=== PATIENT | male | born 1985 | race African-American/Black ===

== ENCOUNTER 2019-07-13 00:55 | Inpatient (IN) | payer MEDICAID ==
[~2019-07-13] VITALS: Ht 190.5 cm; Wt 156.9 kg
[2019-07-13 02:04] LABS: BASOPHILS % 0.7 % (0.0-2.0); HEMATOCRIT. 44.2 % (42.0-52.0); HEMOGLOBIN. 15.3 g/dL (14.0-18.0); LYMPHOCYTES % 22.5 % (20.0-50.0); MEAN CORPUSCULAR HEMOGLOBIN 34.9 pg (28.0-32.0); MEAN CORPUSCULAR VOLUME 100.9 fL (80.0-94.0); MEAN PLATELET VOLUME 11.2 fl (7.4-10.4); MONOCYTES % 12.6 % (2.0-8.0); NEUTROPHILS % 62.2 % (40.0-76.0); PLATELET 122 x1000/uL (130-400); RED BLOOD CELL COUNT 4.38 mill/uL (4.7-6.1); RED CELL DISTRIBUTION WIDTH 14.5 % (11.6-14.6)
[2019-07-13 02:08] LABS: CHLORIDE 108 mEq/L (98-107)
[2019-07-13 02:19] LABS: CREATINE KINASE MB FRACTION 2.3 ng/mL (0.5-3.6)
[2019-07-13] MEDS ORDERED: FUROSEMIDE 20MG/2ML VIAL IVP ONE (02:45)
[2019-07-13 02:51] LABS: CREATINE KINASE 1097 IU/L (39-308)
[2019-07-13] MEDS ORDERED: ASPIRIN 325MG EC TABLET PO ONE (03:30)
[2019-07-13 07:29] LABS: *AMPHETAMINES SCREEN URINE NEGATIVE (NEGATIVE); *BARBITURATES SCREEN URINE NEGATIVE (NEGATIVE); *BENZODIAZEPINES SCREEN URINE NEGATIVE (NEGATIVE); *COCAINE SCREEN URINE NEGATIVE (NEGATIVE); METHADONE URINE SCREEN NEGATIVE (NEGATIVE)
[2019-07-13 07:30] LABS: CANNABINOID URINE SCREEN NEGATIVE (NEGATIVE); OPIATES URINE SCREEN NEGATIVE (NEGATIVE); PHENCYCLIDINE URINE SCREEN NEGATIVE (NEGATIVE)
[2019-07-13 08:55] VITALS: BP 130/87
[2019-07-13 09:00] VITALS: BP 130/87
[2019-07-13] MEDS ORDERED: FUROSEMIDE 20MG/2ML VIAL IVP NR (10:00)
[2019-07-13] MEDS ORDERED: ACETAMINOPHEN 325MG TABLET PO PRN (10:00)
[2019-07-13] MEDS ORDERED: ONDANSETRON HCL 4MG/2ML INJ IV PRN (10:00)
[2019-07-13 12:00] VITALS: BP 136/87
[2019-07-13] MEDS ORDERED: IPRATROPIUM/ALBUTEROL 0.5-3(2.5)MG/3ML NEB HHN PRN (12:15)
[2019-07-13] MEDS: LOSARTAN POTASSIUM 50 MG TABLET PO SCH (15:27)
[2019-07-13 16:00] VITALS: BP 132/74
[2019-07-13 18:56] LABS: HEPATITIS B SURFACE ANTIGEN NEGATIVE
[2019-07-13 19:06] LABS: CLARITY URINE CLEAR (CLEAR); COLOR URINE YELLOW (YELLOW); KETONES URINE NEGATIVE (NEGATIVE); LEUKOCYTE ESTERASE URINE NEGATIVE (NEGATIVE); NITRITE URINE NEGATIVE (NEGATIVE); OCCULT BLOOD URINE 1+ (NEGATIVE); PROTEIN URINE NEGATIVE (NEGATIVE); SPECIFIC GRAVITY URINE 1.009 (1.005-1.030)
[2019-07-13 19:26] LABS: HEPATITIS A AB IGM NEGATIVE (NEGATIVE)
[2019-07-13 20:00] VITALS: BP 122/73
[2019-07-13] MEDS: CARVEDILOL 6.25 MG TABLET PO SCH (21:29)
[2019-07-14] VITALS: BP 131/88
[2019-07-14 04:00] VITALS: BP 119/72
[2019-07-14 06:06] LABS: CHLORIDE 106 mEq/L (98-107)
[2019-07-14 06:29] LABS: BASOPHILS % 0.8 % (0.0-2.0); EOSINOPHILS % 2.3 % (0.0-5.0); HEMATOCRIT. 43.6 % (42.0-52.0); HEMOGLOBIN. 14.7 g/dL (14.0-18.0); LYMPHOCYTES % 20.7 % (20.0-50.0); MEAN CORPUSCULAR HEMOGLOBIN 34.3 pg (28.0-32.0); MEAN CORPUSCULAR VOLUME 101.7 fL (80.0-94.0); MEAN PLATELET VOLUME 11.4 fl (7.4-10.4); MONOCYTES % 10.8 % (2.0-8.0); NEUTROPHILS % 65.4 % (40.0-76.0); PLATELET 115 x1000/uL (130-400); RED BLOOD CELL COUNT 4.29 mill/uL (4.7-6.1); RED CELL DISTRIBUTION WIDTH 14.6 % (11.6-14.6)
[2019-07-14 08:45] VITALS: BP 127/86
[2019-07-14] MEDS: ASPIRIN 81MG TABLET PO SCH (09:19)
[2019-07-14] MEDS: CARVEDILOL 6.25 MG TABLET PO SCH (09:19)
[2019-07-14] MEDS: FUROSEMIDE 40MG/4ML VIAL IVP SCH (09:20)
[2019-07-14] MEDS: LOSARTAN POTASSIUM 50 MG TABLET PO SCH (09:20)
[2019-07-14 11:32] VITALS: BP 123/72
[2019-07-14] MEDS: SPIRONOLACTONE 25MG TABLET PO SCH (14:08)
[2019-07-14 20:00] VITALS: BP 137/77
[2019-07-14] MEDS ORDERED: CARVEDILOL 12.5MG TABLET PO SCH (21:00)
[2019-07-15] VITALS: BP 120/67
[2019-07-15 04:00] VITALS: BP 107/65
[2019-07-15 08:00] VITALS: BP 118/68
[2019-07-15] MEDS: SPIRONOLACTONE 25MG TABLET PO SCH (08:32)
[2019-07-15] MEDS: ASPIRIN 81MG TABLET PO SCH (08:32)
[2019-07-15] MEDS: FUROSEMIDE 40MG/4ML VIAL IVP SCH (08:32)
[2019-07-15 09:25] VITALS: BP 118/68
== END 2019-07-15 10:08 | disposition home or self-care (01) | DRG 194 ==
LOC: ER 00:55 → 6WST 03:59 → EDBEDREQ 04:02 → EDBEDREQTM 04:02 → ENRESERV 06:54
PROVIDERS: ADMIT Internal Medicine; ATTEND Internal Medicine
DX: I11.0 Hypertensive heart disease with heart failure (principal); E87.8 Other disorders of electrolyte and fluid balance, not elsewhere classified; E66.01 Morbid (severe) obesity due to excess calories; I42.9 Cardiomyopathy, unspecified; M62.82 Rhabdomyolysis; Z68.41 Body mass index [BMI] 40.0-44.9, adult; I50.23 Acute on chronic systolic (congestive) heart failure; E78.5 Hyperlipidemia, unspecified; F17.210 Nicotine dependence, cigarettes, uncomplicated; R74.0 Nonspecific elevation of levels of transaminase and lactic acid dehydrogenase [LDH]; K76.0 Fatty (change of) liver, not elsewhere classified; Z91.19 Patient's noncompliance with other medical treatment and regimen
CPT/HCPCS: 36415; 71045; 76700; 80061; 80305; 81003; 82550; 82553; 83735; 83880; 84145; 84443; 84484; 85379; 86705; 86709; 86803; 87340; 93005; 93306; 93970; 96374; 99285; J1940

== ENCOUNTER 2019-09-15 19:28 | Inpatient (IN) | payer MEDICAID ==
[~2019-09-15] VITALS: Ht 190.5 cm; Wt 148.3 kg
[2019-09-15 21:19] LABS: BASOPHILS % 0.8 % (0.0-2.0); EOSINOPHILS % 2.5 % (0.0-5.0); HEMATOCRIT. 45.8 % (42.0-52.0); HEMOGLOBIN. 15.7 g/dL (14.0-18.0); LYMPHOCYTES % 24.4 % (20.0-50.0); MEAN CORPUSCULAR HEMOGLOBIN 33.5 pg (28.0-32.0); MEAN CORPUSCULAR VOLUME 97.7 fL (80.0-94.0); MEAN PLATELET VOLUME 11.6 fl (7.4-10.4); MONOCYTES % 7.7 % (2.0-8.0); NEUTROPHILS % 64.6 % (40.0-76.0); PLATELET 144 x1000/uL (130-400); RED BLOOD CELL COUNT 4.68 mill/uL (4.7-6.1); RED CELL DISTRIBUTION WIDTH 13.4 % (11.6-14.6)
[2019-09-15 21:25] LABS: CHLORIDE 107 mEq/L (98-107)
[2019-09-15 21:31] LABS: D-DIMER 0.38 mg/L FEU (<0.50); INR 1.1; PARTIAL THROMBOPLASTIN TIME 27.3 sec (23.4-31.0); PROTHROMBIN TIME 11.4 sec (9.6-11.0)
[2019-09-15] MEDS ORDERED: ASPIRIN 81MG TABLET PO ONE (23:00)
[2019-09-15] MEDS ORDERED: NITROGLYCERIN OINT 1GM/INCH UDPKT TD ONE (23:00)
[2019-09-15] MEDS ORDERED: FUROSEMIDE 40MG/4ML VIAL IV ONE (23:00)
[2019-09-16] MEDS ORDERED: ONDANSETRON HCL 4MG/2ML INJ IV STA (00:16)
[2019-09-16] MEDS ORDERED: MORPHINE SULFATE 4 MG/ML CPJ (NOT FOR IM USE) IV STA (00:16)
[2019-09-16] MEDS ORDERED: FURO40TA5 MT (06:09)
[2019-09-16] MEDS ORDERED: LOSA50TA41 MT ×2 (06:09→12:22)
[2019-09-16] MEDS ORDERED: CARV12.545 MT (06:09)
[2019-09-16 12:00] VITALS: BP 108/70
[2019-09-16] MEDS ORDERED: ACETAMINOPHEN 325MG TABLET PO PRN (12:15)
[2019-09-16] MEDS ORDERED: ONDANSETRON HCL 4MG/2ML INJ IV PRN (12:15)
[2019-09-16] MEDS ORDERED: CLONIDINE 0.1MG TABLET PO PRN (12:15)
[2019-09-16] MEDS ORDERED: FUROSEMIDE 40MG/4ML VIAL IVP SCH (12:15)
[2019-09-16] MEDS ORDERED: COR12 MT (12:22)
[2019-09-16] MEDS ORDERED: FURO-151 MT (12:22)
[2019-09-16 12:25] VITALS: BP 136/75
[2019-09-16] MEDS ORDERED: ENOXAPARIN 40MG/0.4ML SYR SUBCUT SCH (13:00)
[2019-09-16] MEDS: LOSARTAN POTASSIUM 50 MG TABLET PO SCH (13:11)
[2019-09-16] MEDS: CARVEDILOL 12.5MG TABLET PO SCH ×2 (13:12→21:00)
[2019-09-16] MEDS: ENOXAPARIN 40MG/0.4ML SYR SUBCUT SCH ×2 (13:13→21:18)
[2019-09-16 16:00] VITALS: BP 99/60
[2019-09-16 16:34] LABS: *AMPHETAMINES SCREEN URINE NEGATIVE (NEGATIVE); CANNABINOID URINE SCREEN NEGATIVE (NEGATIVE); OPIATES URINE SCREEN PRESUMTIVE POSITIVE (NEGATIVE); PHENCYCLIDINE URINE SCREEN NEGATIVE (NEGATIVE)
[2019-09-16 16:35] LABS: *BARBITURATES SCREEN URINE NEGATIVE (NEGATIVE); *BENZODIAZEPINES SCREEN URINE NEGATIVE (NEGATIVE); *COCAINE SCREEN URINE NEGATIVE (NEGATIVE); METHADONE URINE SCREEN NEGATIVE (NEGATIVE)
[2019-09-16] MEDS: FUROSEMIDE 40MG/4ML VIAL IVP SCH (17:57)
[2019-09-16 18:28] LABS: CREATINE KINASE 139 IU/L (39-308)
[2019-09-16 18:30] LABS: CREATINE KINASE MB FRACTION 1.2 ng/mL (0.5-3.6)
[2019-09-16 20:00] VITALS: BP 100/52
[2019-09-16] MEDS: IPRATROPIUM/ALBUTEROL 0.5-3(2.5)MG/3ML NEB HHN SCH (20:05)
[2019-09-16] MEDS: ATORVASTATIN CALCIUM 20MG TABLET PO SCH (21:18)
[2019-09-16 23:45] LABS: CREATINE KINASE 124 IU/L (39-308)
[2019-09-16 23:46] LABS: CREATINE KINASE MB FRACTION < 1.0 ng/mL (0.5-3.6)
[2019-09-17] VITALS: BP 114/53
[2019-09-17] MEDS: HYDROCODONE/ACETAMINOPHEN 5/325MG TABLET PO PRN (00:55)
[2019-09-17] MEDS: IPRATROPIUM/ALBUTEROL 0.5-3(2.5)MG/3ML NEB HHN SCH ×4 (01:19→21:24)
[2019-09-17 04:00] VITALS: BP 95/64
[2019-09-17] MEDS: FUROSEMIDE 40MG/4ML VIAL IVP SCH ×2 (06:38→18:12)
[2019-09-17 06:46] LABS: BASOPHILS % 0.8 % (0.0-2.0); EOSINOPHILS % 2.9 % (0.0-5.0); LYMPHOCYTES % 28.5 % (20.0-50.0); MEAN CORPUSCULAR HEMOGLOBIN 33.5 pg (28.0-32.0); MEAN CORPUSCULAR VOLUME 98.5 fL (80.0-94.0); MEAN PLATELET VOLUME 11.5 fl (7.4-10.4); MONOCYTES % 10.8 % (2.0-8.0); PLATELET 130 x1000/uL (130-400); RED BLOOD CELL COUNT 4.47 mill/uL (4.7-6.1); RED CELL DISTRIBUTION WIDTH 13.3 % (11.6-14.6)
[2019-09-17 08:00] VITALS: BP 105/64
[2019-09-17] MEDS: CARVEDILOL 12.5MG TABLET PO SCH ×2 (08:40→20:19)
[2019-09-17] MEDS: ENOXAPARIN 40MG/0.4ML SYR SUBCUT SCH ×3 (08:41→20:19)
[2019-09-17] MEDS: LOSARTAN POTASSIUM 50 MG TABLET PO SCH (08:41)
[2019-09-17 09:18] LABS: CHLORIDE 105 mEq/L (98-107)
[2019-09-17 12:00] VITALS: BP 102/55
[2019-09-17] MEDS: POTASSIUM CHLORIDE 20MEQ TABLET SR PO SCH (14:39)
[2019-09-17 16:00] VITALS: BP 108/57
[2019-09-17 20:00] VITALS: BP 93/52
[2019-09-17] MEDS: ATORVASTATIN CALCIUM 20MG TABLET PO SCH (20:18)
[2019-09-18] VITALS: BP 122/73
[2019-09-18] MEDS: IPRATROPIUM/ALBUTEROL 0.5-3(2.5)MG/3ML NEB HHN SCH ×3 (02:10→14:05)
[2019-09-18] MEDS: HYDROCODONE/ACETAMINOPHEN 5/325MG TABLET PO PRN (03:44)
[2019-09-18 04:00] VITALS: BP 122/77
[2019-09-18] MEDS: FUROSEMIDE 40MG/4ML VIAL IVP SCH (06:33)
[2019-09-18 07:30] LABS: BASOPHILS % 0.8 % (0.0-2.0); EOSINOPHILS % 2.5 % (0.0-5.0); HEMATOCRIT. 42.4 % (42.0-52.0); HEMOGLOBIN. 14.5 g/dL (14.0-18.0); LYMPHOCYTES % 27.1 % (20.0-50.0); MEAN CORPUSCULAR HEMOGLOBIN 33.7 pg (28.0-32.0); MEAN CORPUSCULAR VOLUME 98.5 fL (80.0-94.0); MEAN PLATELET VOLUME 11.7 fl (7.4-10.4); NEUTROPHILS % 58.6 % (40.0-76.0); PLATELET 131 x1000/uL (130-400); RED CELL DISTRIBUTION WIDTH 13.4 % (11.6-14.6)
[2019-09-18 07:32] LABS: CHLORIDE 103 mEq/L (98-107)
[2019-09-18 08:00] VITALS: BP 95/54
[2019-09-18] MEDS: POTASSIUM CHLORIDE 20MEQ TABLET SR PO SCH (08:48)
[2019-09-18] MEDS: CARVEDILOL 12.5MG TABLET PO SCH (08:49)
[2019-09-18] MEDS: ENOXAPARIN 40MG/0.4ML SYR SUBCUT SCH (08:49)
[2019-09-18] MEDS: LOSARTAN POTASSIUM 50 MG TABLET PO SCH (08:49)
[2019-09-18] MEDS ORDERED: ASPIRIN 81MG TABLET PO SCH (09:00)
[2019-09-18] MEDS ORDERED: POTASSIUM CHLORIDE 20MEQ TABLET SR PO NR (11:15)
[2019-09-18 12:00] VITALS: BP 96/64
[2019-09-18 12:45] VITALS: BP 96/64
[2019-09-18] MEDS ORDERED: ATORVASTATIN CALCIUM 40MG TABLET PO SCH (21:00)
== END 2019-09-18 15:10 | disposition home or self-care (01) | DRG 194 ==
LOC: ER 19:28 → EDBEDREQTM 09-16 00:03 → EDBEDREQ 09-16 00:03 → ENRESERV 09-16 07:32 → 8WST 09-16 08:27
PROVIDERS: ADMIT Internal Medicine; ATTEND Internal Medicine
DX: I11.0 Hypertensive heart disease with heart failure (principal); I42.9 Cardiomyopathy, unspecified; E66.01 Morbid (severe) obesity due to excess calories; Z68.41 Body mass index [BMI] 40.0-44.9, adult; M25.561 Pain in right knee; R74.0 Nonspecific elevation of levels of transaminase and lactic acid dehydrogenase [LDH]; M25.572 Pain in left ankle and joints of left foot; Z82.49 Family history of ischemic heart disease and other diseases of the circulatory system; Z91.19 Patient's noncompliance with other medical treatment and regimen; E78.00 Pure hypercholesterolemia, unspecified; F12.90 Cannabis use, unspecified, uncomplicated; E78.5 Hyperlipidemia, unspecified; I50.23 Acute on chronic systolic (congestive) heart failure; I34.0 Nonrheumatic mitral (valve) insufficiency
CPT/HCPCS: 36415; 71045; 73560; 73610; 80048; 80305; 82550; 82553; 83735; 83880; 84484; 85379; 93005; 93970; 96374; 96375; 99285; J1650; J1940; J2270; J2405; J7620

== ENCOUNTER 2019-10-19 08:45 | Inpatient (IN) | payer MEDICAID ==
[~2019-10-19] VITALS: Ht 190.5 cm; Wt 153.3 kg
[~2019-10-19 08:45] MED LIST: CARV12.545 MT; COR12 MT; FURO-151 MT; FURO40TA5 MT; LOSA50TA41 MT
[2019-10-19] MEDS ORDERED: MORPHINE SULFATE 4 MG/ML CPJ (NOT FOR IM USE) IV STA (09:39)
[2019-10-19 10:04] LABS: BASOPHILS % 0.7 % (0.0-2.0); EOSINOPHILS % 2.4 % (0.0-5.0); HEMATOCRIT. 42.4 % (42.0-52.0); HEMOGLOBIN. 14.6 g/dL (14.0-18.0); LYMPHOCYTES % 21.5 % (20.0-50.0); MEAN CORPUSCULAR HEMOGLOBIN 33.7 pg (28.0-32.0); MEAN CORPUSCULAR VOLUME 97.7 fL (80.0-94.0); MEAN PLATELET VOLUME 11.2 fl (7.4-10.4); MONOCYTES % 9.7 % (2.0-8.0); NEUTROPHILS % 65.7 % (40.0-76.0); PLATELET 103 x1000/uL (130-400); RED BLOOD CELL COUNT 4.34 mill/uL (4.7-6.1); RED CELL DISTRIBUTION WIDTH 14.8 % (11.6-14.6)
[2019-10-19 10:11] LABS: CHLORIDE 107 mEq/L (98-107)
[2019-10-19] MEDS ORDERED: ONDANSETRON HCL 4MG/2ML INJ IV PRN (11:00)
[2019-10-19] MEDS ORDERED: DIPHENHYDRAMINE 50MG/ML VIAL IV PRN (11:00)
[2019-10-19] MEDS ORDERED: DOCUSATE SODIUM 100MG CAPSULE PO PRN (11:00)
[2019-10-19] MEDS ORDERED: MAGNESIUM/ALUMINUM HYDROXIDE/SIMETHICONE 30ML UDC PO PRN (11:00)
[2019-10-19] MEDS ORDERED: CLONIDINE 0.1MG TABLET PO PRN (11:00)
[2019-10-19] MEDS ORDERED: ASPIRIN 325MG EC TABLET PO ONE (11:00)
[2019-10-19] MEDS ORDERED: IPRATROPIUM/ALBUTEROL 0.5-3(2.5)MG/3ML NEB HHN PRN (11:00)
[2019-10-19] MEDS ORDERED: GUAIFENESIN 200MG/10ML SUGAR FREE UDC PO PRN (11:00)
[2019-10-19] MEDS ORDERED: ENOXAPARIN 40MG/0.4ML SYR SUBCUT SCH (11:00)
[2019-10-19] MEDS ORDERED: ACETAMINOPHEN 325MG TABLET PO PRN (11:00)
[2019-10-19 11:23] LABS: PHOSPHORUS 3.1 mg/dL (2.5-4.9)
[2019-10-19] MEDS: ENOXAPARIN 30MG/0.3ML SYR SUBCUT SCH ×2 (12:00→22:00)
[2019-10-19 14:30] VITALS: BP 119/76
[2019-10-19 14:46] VITALS: BP 119/76
[2019-10-19 15:30] VITALS: BP 119/76
[2019-10-19] MEDS: MORPHINE SULFATE 2 MG/ML CPJ (NOT FOR IM USE) IV PRN (15:37)
[2019-10-19 16:00] VITALS: BP 114/60
[2019-10-19] MEDS: POTASSIUM CHLORIDE 20MEQ TABLET SR PO SCH (18:17)
[2019-10-19] MEDS: FUROSEMIDE 40MG/4ML VIAL IVP SCH (18:17)
[2019-10-19] MEDS: LOSARTAN POTASSIUM 25 MG TABLET PO SCH (18:17)
[2019-10-19 20:00] VITALS: BP 117/73
[2019-10-19] MEDS: ATORVASTATIN CALCIUM 20MG TABLET PO SCH (21:57)
[2019-10-19] MEDS: CARVEDILOL 12.5MG TABLET PO SCH (21:58)
[2019-10-19 23:18] LABS: *AMPHETAMINES SCREEN URINE NEGATIVE (NEGATIVE); *BARBITURATES SCREEN URINE NEGATIVE (NEGATIVE); *BENZODIAZEPINES SCREEN URINE NEGATIVE (NEGATIVE); *COCAINE SCREEN URINE NEGATIVE (NEGATIVE); METHADONE URINE SCREEN NEGATIVE (NEGATIVE)
[2019-10-19 23:19] LABS: CANNABINOID URINE SCREEN NEGATIVE (NEGATIVE); OPIATES URINE SCREEN PRESUMTIVE POSITIVE (NEGATIVE); PHENCYCLIDINE URINE SCREEN NEGATIVE (NEGATIVE)
[2019-10-20] VITALS: BP 112/68
[2019-10-20 04:00] VITALS: BP 109/61
[2019-10-20 06:43] LABS: CHLORIDE 107 mEq/L (98-107)
[2019-10-20 07:05] LABS: LDL CHOLESTEROL 124 mg/dL (5-100)
[2019-10-20 07:08] LABS: HDL CHOLESTEROL 30 mg/dL (40-59)
[2019-10-20 07:10] LABS: BASOPHILS % 0.5 % (0.0-2.0); EOSINOPHILS % 2.5 % (0.0-5.0); HEMATOCRIT. 42.2 % (42.0-52.0); HEMOGLOBIN. 14.6 g/dL (14.0-18.0); LYMPHOCYTES % 27.5 % (20.0-50.0); MEAN CORPUSCULAR HEMOGLOBIN 33.7 pg (28.0-32.0); MEAN CORPUSCULAR VOLUME 97.5 fL (80.0-94.0); MEAN PLATELET VOLUME 10.9 fl (7.4-10.4); MONOCYTES % 13.5 % (2.0-8.0); PLATELET 98 x1000/uL (130-400); RED BLOOD CELL COUNT 4.33 mill/uL (4.7-6.1); RED CELL DISTRIBUTION WIDTH 14.7 % (11.6-14.6)
[2019-10-20 08:00] VITALS: BP 117/72
[2019-10-20] MEDS: MORPHINE SULFATE 2 MG/ML CPJ (NOT FOR IM USE) IV PRN ×2 (10:05→21:23)
[2019-10-20] MEDS: FUROSEMIDE 40MG/4ML VIAL IVP SCH ×2 (10:15→16:46)
[2019-10-20] MEDS: ASPIRIN 81MG EC TABLET PO SCH (10:15)
[2019-10-20] MEDS: LOSARTAN POTASSIUM 25 MG TABLET PO SCH (10:15)
[2019-10-20] MEDS: POTASSIUM CHLORIDE 20MEQ TABLET SR PO SCH (10:15)
[2019-10-20] MEDS: ENOXAPARIN 30MG/0.3ML SYR SUBCUT SCH (10:24)
[2019-10-20 12:00] VITALS: BP 110/68
[2019-10-20] MEDS: CARVEDILOL 12.5MG TABLET PO SCH ×2 (12:51→21:22)
[2019-10-20 16:00] VITALS: BP 96/57
[2019-10-20 20:00] VITALS: BP 126/98
[2019-10-20] MEDS: ATORVASTATIN CALCIUM 20MG TABLET PO SCH (21:17)
[2019-10-21] VITALS: BP 113/68
[2019-10-21 04:00] VITALS: BP 118/70
[2019-10-21 08:05] VITALS: BP 114/68
[2019-10-21 08:22] LABS: CHLORIDE 104 mEq/L (98-107)
[2019-10-21 08:31] LABS: BASOPHILS % 0.7 % (0.0-2.0); EOSINOPHILS % 2.3 % (0.0-5.0); HEMATOCRIT. 42.6 % (42.0-52.0); HEMOGLOBIN. 14.6 g/dL (14.0-18.0); LYMPHOCYTES % 27.5 % (20.0-50.0); MEAN CORPUSCULAR HEMOGLOBIN 33.4 pg (28.0-32.0); MEAN PLATELET VOLUME 11.5 fl (7.4-10.4); MONOCYTES % 9.4 % (2.0-8.0); NEUTROPHILS % 60.1 % (40.0-76.0); PLATELET 104 x1000/uL (130-400); RED BLOOD CELL COUNT 4.39 mill/uL (4.7-6.1); RED CELL DISTRIBUTION WIDTH 14.7 % (11.6-14.6)
[2019-10-21] MEDS: FUROSEMIDE 100MG/10ML VIAL IVP SCH ×2 (09:01→17:46)
[2019-10-21] MEDS: POTASSIUM CHLORIDE 20MEQ TABLET SR PO SCH ×2 (09:02→17:46)
[2019-10-21] MEDS: CARVEDILOL 12.5MG TABLET PO SCH ×2 (09:04→20:13)
[2019-10-21] MEDS: ASPIRIN 81MG EC TABLET PO SCH (09:04)
[2019-10-21] MEDS: LOSARTAN POTASSIUM 50 MG TABLET PO SCH (09:06)
[2019-10-21] MEDS: MORPHINE SULFATE 2 MG/ML CPJ (NOT FOR IM USE) IV PRN (09:15)
[2019-10-21 12:01] VITALS: BP 156/54
[2019-10-21 16:00] VITALS: BP 156/54
[2019-10-21 20:00] VITALS: BP 112/69
[2019-10-21] MEDS: ATORVASTATIN CALCIUM 20MG TABLET PO SCH (20:13)
[2019-10-22] VITALS: BP 147/75
[2019-10-22] MEDS: MORPHINE SULFATE 2 MG/ML CPJ (NOT FOR IM USE) IV PRN ×2 (00:37→21:42)
[2019-10-22 04:00] VITALS: BP 123/74
[2019-10-22 07:48] LABS: BASOPHILS % 0.7 % (0.0-2.0); EOSINOPHILS % 3.1 % (0.0-5.0); HEMATOCRIT. 42.8 % (42.0-52.0); HEMOGLOBIN. 14.7 g/dL (14.0-18.0); LYMPHOCYTES % 30.7 % (20.0-50.0); MEAN CORPUSCULAR HEMOGLOBIN 33.5 pg (28.0-32.0); MEAN CORPUSCULAR VOLUME 97.2 fL (80.0-94.0); MEAN PLATELET VOLUME 11.6 fl (7.4-10.4); MONOCYTES % 8.2 % (2.0-8.0); NEUTROPHILS % 57.3 % (40.0-76.0); PLATELET 107 x1000/uL (130-400); RED CELL DISTRIBUTION WIDTH 14.4 % (11.6-14.6)
[2019-10-22 08:05] VITALS: BP 108/52
[2019-10-22 08:05] LABS: CHLORIDE 102 mEq/L (98-107)
[2019-10-22] MEDS: FUROSEMIDE 100MG/10ML VIAL IVP SCH ×2 (08:10→16:49)
[2019-10-22] MEDS: LOSARTAN POTASSIUM 50 MG TABLET PO SCH (08:11)
[2019-10-22] MEDS: CARVEDILOL 12.5MG TABLET PO SCH ×2 (08:11→21:42)
[2019-10-22] MEDS: ASPIRIN 81MG EC TABLET PO SCH (08:16)
[2019-10-22] MEDS: POTASSIUM CHLORIDE 20MEQ TABLET SR PO SCH ×2 (08:16→16:49)
[2019-10-22] MEDS: NAPROXEN 375MG TABLET PO SCH ×2 (09:09→18:04)
[2019-10-22 12:04] VITALS: BP 95/52
[2019-10-22 15:37] VITALS: BP 108/67
[2019-10-22 20:10] VITALS: BP 119/69
[2019-10-22] MEDS: ATORVASTATIN CALCIUM 20MG TABLET PO SCH (21:39)
[2019-10-23 00:10] VITALS: BP 114/66
[2019-10-23 04:00] VITALS: BP 108/70
[2019-10-23] MEDS: FUROSEMIDE 100MG/10ML VIAL IVP SCH (06:52)
[2019-10-23 07:18] LABS: BASOPHILS % 1.2 % (0.0-2.0); EOSINOPHILS % 3.1 % (0.0-5.0); HEMATOCRIT. 43.3 % (42.0-52.0); HEMOGLOBIN. 14.9 g/dL (14.0-18.0); LYMPHOCYTES % 31.3 % (20.0-50.0); MEAN CORPUSCULAR HEMOGLOBIN 33.4 pg (28.0-32.0); MEAN CORPUSCULAR VOLUME 96.8 fL (80.0-94.0); MEAN PLATELET VOLUME 11.5 fl (7.4-10.4); MONOCYTES % 12.7 % (2.0-8.0); NEUTROPHILS % 51.7 % (40.0-76.0); PLATELET 109 x1000/uL (130-400); RED BLOOD CELL COUNT 4.47 mill/uL (4.7-6.1); RED CELL DISTRIBUTION WIDTH 14.3 % (11.6-14.6)
[2019-10-23 07:36] LABS: CHLORIDE 103 mEq/L (98-107)
[2019-10-23 08:00] VITALS: BP 122/68
[2019-10-23] MEDS: LOSARTAN POTASSIUM 50 MG TABLET PO SCH (09:12)
[2019-10-23] MEDS: POTASSIUM CHLORIDE 20MEQ TABLET SR PO SCH (09:12)
[2019-10-23] MEDS: ASPIRIN 81MG EC TABLET PO SCH (09:15)
[2019-10-23] MEDS: CARVEDILOL 12.5MG TABLET PO SCH (09:15)
[2019-10-23] MEDS: NAPROXEN 375MG TABLET PO SCH (09:16)
[2019-10-23 12:00] VITALS: BP 112/78
[2019-10-23] MEDS ORDERED: ASPI-1158 PO (12:33)
[2019-10-23] MEDS ORDERED: FURO40TA5 MT (12:33)
[2019-10-23] MEDS ORDERED: POTA20TA82 PO (12:33)
[2019-10-23] MEDS ORDERED: NAPR-679 PO (12:33)
[2019-10-23] MEDS ORDERED: ATOR20TA PO (12:33)
[2019-10-23 12:37] VITALS: BP 112/78
[2019-10-23 16:00] VITALS: BP 112/70
== END 2019-10-23 17:00 | disposition home or self-care (01) | DRG 194 ==
LOC: ER 08:45 → 6WST 10:54 → EDBEDREQTM 11:01 → ENRESERV 13:23
PROVIDERS: ADMIT Internal Medicine; ATTEND Internal Medicine
DX: I11.0 Hypertensive heart disease with heart failure (principal); D69.6 Thrombocytopenia, unspecified; I42.0 Dilated cardiomyopathy; E78.5 Hyperlipidemia, unspecified; R74.0 Nonspecific elevation of levels of transaminase and lactic acid dehydrogenase [LDH]; M10.9 Gout, unspecified; I50.9 Heart failure, unspecified; E66.09 Other obesity due to excess calories; I08.1 Rheumatic disorders of both mitral and tricuspid valves; Z91.19 Patient's noncompliance with other medical treatment and regimen; Z68.41 Body mass index [BMI] 40.0-44.9, adult; Z82.49 Family history of ischemic heart disease and other diseases of the circulatory system; Z79.899 Other long term (current) drug therapy; Z80.9 Family history of malignant neoplasm, unspecified
CPT/HCPCS: 36415; 71045; 73562; 73610; 80048; 80061; 80076; 80305; 83036; 83735; 83880; 84100; 84443; 84484; 84550; 93005; 93970; 99285; J1650; J1940; J2270

== ENCOUNTER 2019-11-15 02:40 | Emergency (ER) | payer MEDICAID ==
[~2019-11-15] VITALS: Ht 190.5 cm; Wt 156.8 kg
[~2019-11-15 02:40] MED LIST changes: +ASPI-1158 PO; +ATOR20TA PO; -COR12 MT; -FURO-151 MT; +NAPR-679 PO; +POTA20TA82 PO
[2019-11-15 03:03] VITALS: BP 120/73
== END 2019-11-15 03:47 | disposition left against medical advice (07) ==
LOC: ER 02:40
DX: Z53.21 Procedure and treatment not carried out due to patient leaving prior to being seen by health care provider (principal)

== ENCOUNTER 2019-11-15 04:10 | Emergency (ER) | payer MEDICAID ==
[~2019-11-15] VITALS: Ht 190.5 cm; Wt 154.5 kg
[2019-11-15 05:40] LABS: EOSINOPHILS % 2.2 % (0.0-5.0); HEMATOCRIT. 43.5 % (42.0-52.0); LYMPHOCYTES % 45.4 % (20.0-50.0); MEAN CORPUSCULAR HEMOGLOBIN 32.6 pg (28.0-32.0); MEAN CORPUSCULAR VOLUME 94.5 fL (80.0-94.0); MEAN PLATELET VOLUME 11.8 fl (7.4-10.4); MONOCYTES % 9.7 % (2.0-8.0); NEUTROPHILS % 41.7 % (40.0-76.0); PLATELET 134 x1000/uL (130-400)
[2019-11-15 05:48] LABS: CHLORIDE 108 mEq/L (98-107)
[2019-11-15 05:51] LABS: INR 1.1; PROTHROMBIN TIME 11.3 sec (9.6-11.0)
[2019-11-15 05:52] LABS: ETHANOL BLOOD 177 mg/dL
[2019-11-15 11:30] VITALS: BP 128/75
== END 2019-11-15 11:33 | disposition home or self-care (01) ==
LOC: ER 04:10
DX: R44.0 Auditory hallucinations (principal); I11.0 Hypertensive heart disease with heart failure; I50.9 Heart failure, unspecified; F12.10 Cannabis abuse, uncomplicated; Z80.9 Family history of malignant neoplasm, unspecified
CPT/HCPCS: 36415; 71045; 80053; 80307; 80320; 80329; 83690; 83880; 84443; 84484; 85025; 85610; 99283; Z7610; G0480

== ENCOUNTER 2019-12-07 01:55 | Emergency (ER) | payer MEDICAID ==
[~2019-12-07] VITALS: Ht 175.3 cm; Wt 90.0 kg
[2019-12-07 10:32] VITALS: BP 105/59
== END 2019-12-07 10:45 | disposition home or self-care (01) ==
LOC: ER 01:55
DX: S40.012A Contusion of left shoulder, initial encounter (principal); I10 Essential (primary) hypertension; F12.10 Cannabis abuse, uncomplicated; F10.129 Alcohol abuse with intoxication, unspecified; X58.XXXA Exposure to other specified factors, initial encounter; Y93.89 Activity, other specified; Y92.89 Other specified places as the place of occurrence of the external cause; Y99.8 Other external cause status; Z79.899 Other long term (current) drug therapy
CPT/HCPCS: 73030; 99283; Z7610

== ENCOUNTER 2020-01-08 10:55 | Emergency (ER) | payer MEDICAID ==
[~2020-01-08] VITALS: Ht 190.5 cm; Wt 156.0 kg
[2020-01-08] MEDS ORDERED: FUROSEMIDE 40MG/4ML VIAL IVP ONE (18:15)
[2020-01-08] MEDS ORDERED: ASPIRIN 325MG EC TABLET PO ONE (18:15)
[2020-01-08] MEDS ORDERED: ACETAMINOPHEN 325MG TABLET PO ONE (18:15)
[2020-01-08 18:34] LABS: BASOPHILS % 1.1 % (0.0-2.0); EOSINOPHILS % 2.4 % (0.0-5.0); HEMATOCRIT. 46.2 % (42.0-52.0); HEMOGLOBIN. 16.1 g/dL (14.0-18.0); LYMPHOCYTES % 27.9 % (20.0-50.0); MEAN CORPUSCULAR HEMOGLOBIN 33.6 pg (28.0-32.0); MEAN CORPUSCULAR VOLUME 96.7 fL (80.0-94.0); MEAN PLATELET VOLUME 11.5 fl (7.4-10.4); MONOCYTES % 10.4 % (2.0-8.0); NEUTROPHILS % 58.2 % (40.0-76.0); PLATELET 133 x1000/uL (130-400); RED BLOOD CELL COUNT 4.78 mill/uL (4.7-6.1); RED CELL DISTRIBUTION WIDTH 14.7 % (11.6-14.6)
[2020-01-08 18:44] LABS: CHLORIDE 109 mEq/L (98-107)
[2020-01-08 23:06] VITALS: BP 106/70
== END 2020-01-08 23:08 | disposition home or self-care (01) ==
LOC: ER 10:55
DX: R07.9 Chest pain, unspecified (principal); I11.0 Hypertensive heart disease with heart failure; I50.9 Heart failure, unspecified; R79.89 Other specified abnormal findings of blood chemistry; Z79.82 Long term (current) use of aspirin
CPT/HCPCS: 36415; 71045; 80053; 83880; 84484; 85025; 85379; 93005; 96374; 99285; J1940

== ENCOUNTER 2020-02-23 23:25 | Inpatient (IN) | payer MEDICAID ==
[~2020-02-23] VITALS: Ht 190.5 cm; Wt 148.3 kg
[2020-02-24] MEDS ORDERED: ASPIRIN 81MG TABLET PO ONE (00:15)
[2020-02-24] MEDS ORDERED: NITROGLYCERIN 0.4MG TABLET SL SL PRN (00:15)
[2020-02-24 01:03] LABS: BASOPHILS % 1.3 % (0.0-2.0); EOSINOPHILS % 2.7 % (0.0-5.0); HEMATOCRIT. 45.4 % (42.0-52.0); HEMOGLOBIN. 16.1 g/dL (14.0-18.0); LYMPHOCYTES % 29.7 % (20.0-50.0); MEAN PLATELET VOLUME 11.2 fl (7.4-10.4); MONOCYTES % 7.5 % (2.0-8.0); NEUTROPHILS % 58.8 % (40.0-76.0); PLATELET 144 x1000/uL (130-400); RED BLOOD CELL COUNT 4.73 mill/uL (4.7-6.1); RED CELL DISTRIBUTION WIDTH 14.1 % (11.6-14.6)
[2020-02-24 01:11] LABS: CHLORIDE 106 mEq/L (98-107)
[2020-02-24 01:19] LABS: D-DIMER 0.27 mg/L FEU (<0.50); PARTIAL THROMBOPLASTIN TIME 28.2 sec (23.4-31.0); PROTHROMBIN TIME 11.1 sec (9.6-11.0)
[2020-02-24 10:02] VITALS: BP 112/70
[2020-02-24] MEDS ORDERED: GUAIFENESIN 200MG/10ML SUGAR FREE UDC PO PRN (10:30)
[2020-02-24] MEDS ORDERED: CLONIDINE 0.1MG TABLET PO PRN (10:30)
[2020-02-24] MEDS ORDERED: LORAZEPAM 0.5MG TABLET PO PRN (10:30)
[2020-02-24] MEDS ORDERED: ACETAMINOPHEN 325MG TABLET PO PRN (10:30)
[2020-02-24] MEDS ORDERED: ONDANSETRON HCL 4MG/2ML INJ IV PRN (10:30)
[2020-02-24] MEDS ORDERED: IPRATROPIUM/ALBUTEROL 0.5-3(2.5)MG/3ML NEB HHN PRN (10:30)
[2020-02-24] MEDS: FUROSEMIDE 40MG/4ML VIAL IV SCH ×2 (11:46→16:56)
[2020-02-24] MEDS: LOSARTAN POTASSIUM 25 MG TABLET PO SCH (11:47)
[2020-02-24 12:00] VITALS: BP 127/70
[2020-02-24] MEDS: ASPIRIN 81MG TABLET PO SCH (15:19)
[2020-02-24 16:00] VITALS: BP 118/72
[2020-02-24] MEDS ORDERED: FUROSEMIDE 40MG/4ML VIAL IV SCH (17:15)
[2020-02-24 19:41] LABS: *AMPHETAMINES SCREEN URINE NEGATIVE (NEGATIVE); *BARBITURATES SCREEN URINE NEGATIVE (NEGATIVE); *BENZODIAZEPINES SCREEN URINE NEGATIVE (NEGATIVE); *COCAINE SCREEN URINE NEGATIVE (NEGATIVE)
[2020-02-24 19:42] LABS: CANNABINOID URINE SCREEN NEGATIVE (NEGATIVE); METHADONE URINE SCREEN NEGATIVE (NEGATIVE); OPIATES URINE SCREEN NEGATIVE (NEGATIVE)
[2020-02-24 19:43] LABS: PHENCYCLIDINE URINE SCREEN NEGATIVE (NEGATIVE)
[2020-02-24 20:00] VITALS: BP 128/73
[2020-02-24] MEDS: CARVEDILOL 6.25 MG TABLET PO SCH (20:03)
[2020-02-24] MEDS: ATORVASTATIN CALCIUM 10MG TABLET PO SCH (20:03)
[2020-02-25] VITALS: BP 121/71
[2020-02-25] MEDS: HYDROCODONE/ACETAMINOPHEN 5/325MG TABLET PO PRN (02:45)
[2020-02-25 04:00] VITALS: BP 109/63
[2020-02-25 06:12] LABS: EOSINOPHILS % 2.6 % (0.0-5.0); HEMATOCRIT. 47.5 % (42.0-52.0); HEMOGLOBIN. 16.4 g/dL (14.0-18.0); LYMPHOCYTES % 31.4 % (20.0-50.0); MEAN CORPUSCULAR HEMOGLOBIN 33.3 pg (28.0-32.0); MEAN CORPUSCULAR VOLUME 96.5 fL (80.0-94.0); MEAN PLATELET VOLUME 11.8 fl (7.4-10.4); MONOCYTES % 11.7 % (2.0-8.0); NEUTROPHILS % 53.3 % (40.0-76.0); PLATELET 151 x1000/uL (130-400); RED BLOOD CELL COUNT 4.92 mill/uL (4.7-6.1)
[2020-02-25] MEDS: FUROSEMIDE 40MG/4ML VIAL IV SCH ×2 (06:24→16:19)
[2020-02-25 07:25] LABS: CHLORIDE 102 mEq/L (98-107)
[2020-02-25 07:37] LABS: PHOSPHORUS 3.8 mg/dL (2.5-4.9)
[2020-02-25 08:00] VITALS: BP 106/57
[2020-02-25] MEDS: LOSARTAN POTASSIUM 25 MG TABLET PO SCH (08:57)
[2020-02-25] MEDS: CARVEDILOL 6.25 MG TABLET PO SCH ×2 (08:57→20:30)
[2020-02-25] MEDS: ASPIRIN 81MG TABLET PO SCH (09:55)
[2020-02-25 12:00] VITALS: BP 101/57
[2020-02-25 16:00] VITALS: BP 96/57
[2020-02-25 20:00] VITALS: BP 103/66
[2020-02-25] MEDS: ATORVASTATIN CALCIUM 10MG TABLET PO SCH (20:44)
[2020-02-26] VITALS: BP 106/68
[2020-02-26] MEDS: HYDROCODONE/ACETAMINOPHEN 5/325MG TABLET PO PRN (03:53)
[2020-02-26 04:00] VITALS: BP 105/68
[2020-02-26] MEDS: FUROSEMIDE 40MG/4ML VIAL IV SCH (06:15)
[2020-02-26 08:00] VITALS: BP_SYST 102; BP_SYST 136; BP_DIAS 59; BP_DIAS 68
[2020-02-26] MEDS: CARVEDILOL 6.25 MG TABLET PO SCH (08:09)
[2020-02-26] MEDS: ASPIRIN 81MG TABLET PO SCH (08:09)
[2020-02-26] MEDS: LOSARTAN POTASSIUM 25 MG TABLET PO SCH (08:10)
[2020-02-26] MEDS ORDERED: ATOR10TA PO (11:31)
[2020-02-26] MEDS ORDERED: COR6 PO (11:31)
[2020-02-26] MEDS ORDERED: LOSA25TA3 PO (11:31)
[2020-02-26 12:00] VITALS: BP 102/56
[2020-02-26 12:53] VITALS: BP 102/59
== END 2020-02-26 14:36 | disposition home or self-care (01) | DRG 194 ==
LOC: ER 23:25 → EDBEDREQ 02-24 01:42 → 7WST 02-24 02:35 → EDBEDREQ 02-24 02:41 → EDBEDREQTM 02-24 02:41 → ENRESERV 02-24 07:38 → ER 02-24 08:10
PROVIDERS: ADMIT Internal Medicine; ATTEND Internal Medicine
DX: I11.0 Hypertensive heart disease with heart failure (principal); I27.21 Secondary pulmonary arterial hypertension; E66.01 Morbid (severe) obesity due to excess calories; I42.0 Dilated cardiomyopathy; I07.1 Rheumatic tricuspid insufficiency; Z68.41 Body mass index [BMI] 40.0-44.9, adult; E78.00 Pure hypercholesterolemia, unspecified; I25.118 Atherosclerotic heart disease of native coronary artery with other forms of angina pectoris; F17.200 Nicotine dependence, unspecified, uncomplicated; E78.5 Hyperlipidemia, unspecified; I34.0 Nonrheumatic mitral (valve) insufficiency; K76.0 Fatty (change of) liver, not elsewhere classified; I50.43 Acute on chronic combined systolic (congestive) and diastolic (congestive) heart failure; R74.0 Nonspecific elevation of levels of transaminase and lactic acid dehydrogenase [LDH]; K76.1 Chronic passive congestion of liver; Z79.82 Long term (current) use of aspirin; Z79.84 Long term (current) use of oral hypoglycemic drugs; Z79.899 Other long term (current) drug therapy
CPT/HCPCS: 36415; 71045; 80048; 80053; 80076; 80305; 83735; 83880; 84100; 84484; 85025; 85379; 93005; 93306; 93970; 99285; J1940

== ENCOUNTER 2020-03-13 13:38 | Inpatient (IN) | payer MEDICAID ==
[~2020-03-13] VITALS: Ht 190.5 cm; Wt 144.7 kg
[~2020-03-13 13:38] MED LIST changes: +ATOR10TA PO; -ATOR20TA PO; -CARV12.545 MT; +COR6 PO; +LOSA25TA3 PO; -LOSA50TA41 MT
[2020-03-13] MEDS ORDERED: NITROGLYCERIN 0.4MG TABLET SL SL PRN ×2 (14:15→17:15)
[2020-03-13] MEDS ORDERED: ASPIRIN 81MG TABLET PO ONE (14:15)
[2020-03-13 15:33] LABS: BASOPHILS % 0.8 % (0.0-2.0); EOSINOPHILS % 2.5 % (0.0-5.0); HEMATOCRIT. 45.5 % (42.0-52.0); HEMOGLOBIN. 15.8 g/dL (14.0-18.0); MEAN CORPUSCULAR HEMOGLOBIN 33.4 pg (28.0-32.0); MEAN CORPUSCULAR VOLUME 95.8 fL (80.0-94.0); MEAN PLATELET VOLUME 11.4 fl (7.4-10.4); NEUTROPHILS % 61.7 % (40.0-76.0); PLATELET 127 x1000/uL (130-400); RED BLOOD CELL COUNT 4.75 mill/uL (4.7-6.1); RED CELL DISTRIBUTION WIDTH 13.9 % (11.6-14.6)
[2020-03-13 15:36] LABS: CHLORIDE 106 mEq/L (98-107)
[2020-03-13 15:39] LABS: INR 1.1; PARTIAL THROMBOPLASTIN TIME 27.8 sec (23.4-31.0); PROTHROMBIN TIME 11.5 sec (9.6-11.0)
[2020-03-13] MEDS ORDERED: ONDANSETRON HCL 4MG/2ML INJ IV PRN (17:15)
[2020-03-13] MEDS ORDERED: KETOROLAC 30MG/ML VIAL IV PRN (17:15)
[2020-03-13 23:25] VITALS: BP 107/83
[2020-03-13] MEDS: CARVEDILOL 12.5MG TABLET PO SCH (23:30)
[2020-03-14] VITALS: BP 107/83
[2020-03-14 04:00] VITALS: BP 120/73
[2020-03-14 08:19] VITALS: BP 124/73
[2020-03-14] MEDS ORDERED: LOSARTAN POTASSIUM 50 MG TABLET PO SCH (09:00)
[2020-03-14] MEDS ORDERED: ENOXAPARIN 40MG/0.4ML SYR SUBCUT SCH (09:00)
[2020-03-14] MEDS ORDERED: ASPIRIN 81MG TABLET PO SCH (09:00)
[2020-03-14] MEDS: CARVEDILOL 12.5MG TABLET PO SCH (09:06)
[2020-03-14] MEDS: ACETAMINOPHEN 325MG TABLET PO PRN ×2 (09:06→10:40)
[2020-03-14] MEDS ORDERED: REGADENOSON 0.4 MG/5 ML IV ONE ×2 (11:00→11:51)
[2020-03-14 15:40] VITALS: BP 113/70
[2020-03-14 17:07] VITALS: BP 113/70
[2020-03-14] MEDS ORDERED: NAPR500T7 MT (17:37)
== END 2020-03-14 17:30 | disposition home or self-care (01) | DRG 203 ==
LOC: ER 13:38 → 6WST 16:59 → ENRESERV 22:50
PROVIDERS: ADMIT Internal Medicine; ATTEND Internal Medicine
PROC: 5A09357 Assistance with Respiratory Ventilation, Less than 24 Consecutive Hours, Continuous Positive Airway Pressure (ICD-10-PCS; principal; 2020-03-14)
DX: M94.0 Chondrocostal junction syndrome [Tietze] (principal); I27.21 Secondary pulmonary arterial hypertension; I42.9 Cardiomyopathy, unspecified; I11.0 Hypertensive heart disease with heart failure; I50.22 Chronic systolic (congestive) heart failure; I36.1 Nonrheumatic tricuspid (valve) insufficiency; Z68.41 Body mass index [BMI] 40.0-44.9, adult; I25.10 Atherosclerotic heart disease of native coronary artery without angina pectoris; E66.9 Obesity, unspecified; E78.00 Pure hypercholesterolemia, unspecified; E78.5 Hyperlipidemia, unspecified; F12.10 Cannabis abuse, uncomplicated; G47.33 Obstructive sleep apnea (adult) (pediatric); K76.0 Fatty (change of) liver, not elsewhere classified; Z79.899 Other long term (current) drug therapy; Z79.82 Long term (current) use of aspirin; Z71.89 Other specified counseling
CPT/HCPCS: 36415; 71045; 78452; 80053; 83880; 84484; 85025; 93005; 93017; 93971; 99285; A9500; J1650; J1885; J2785

== ENCOUNTER 2020-07-28 02:06 | Inpatient (IN) | payer MEDICAID ==
[~2020-07-28] VITALS: Ht 190.5 cm; Wt 157.9 kg
[~2020-07-28 02:06] MED LIST changes: +NAPR500T7 MT
[2020-07-28] MEDS ORDERED: FUROSEMIDE 40MG/4ML VIAL IVP ONE (02:45)
[2020-07-28] MEDS ORDERED: IBUPROFEN 600MG TABLET PO ONE (03:00)
[2020-07-28] MEDS ORDERED: ACETAMINOPHEN 325MG TABLET PO ONE (03:00)
[2020-07-28 03:07] LABS: EOSINOPHILS % 3.2 % (0.0-5.0); HEMATOCRIT. 43.8 % (42.0-52.0); HEMOGLOBIN. 15.1 g/dL (14.0-18.0); LYMPHOCYTES % 29.7 % (20.0-50.0); MEAN CORPUSCULAR HEMOGLOBIN 34.1 pg (28.0-32.0); MEAN CORPUSCULAR VOLUME 99.1 fL (80.0-94.0); MEAN PLATELET VOLUME 11.1 fl (7.4-10.4); MONOCYTES % 10.7 % (2.0-8.0); NEUTROPHILS % 55.4 % (40.0-76.0); PLATELET 142 x1000/uL (130-400); RED BLOOD CELL COUNT 4.42 mill/uL (4.7-6.1); RED CELL DISTRIBUTION WIDTH 14.6 % (11.6-14.6)
[2020-07-28 03:13] LABS: CHLORIDE 109 mEq/L (98-107)
[2020-07-28] MEDS ORDERED: POTASSIUM CHLORIDE 20MEQ TABLET SR PO ONE (03:30)
[2020-07-28] MEDS ORDERED: ASPIRIN 81MG TABLET PO ONE (03:45)
[2020-07-28] MEDS ORDERED: ONDANSETRON HCL 4MG/2ML INJ IV PRN (07:00)
[2020-07-28] MEDS ORDERED: ACETAMINOPHEN 325MG TABLET PO PRN (07:00)
[2020-07-28 08:00] VITALS: BP 134/86
[2020-07-28 08:15] LABS: CHLORIDE 108 mEq/L (98-107)
[2020-07-28] MEDS: CARVEDILOL 3.125 MG TABLET PO SCH ×2 (08:51→20:50)
[2020-07-28] MEDS: LISINOPRIL 20MG TABLET PO SCH (08:51)
[2020-07-28] MEDS ORDERED: FUROSEMIDE 40MG TABLET PO SCH (09:00)
[2020-07-28] MEDS ORDERED: ENOXAPARIN 40MG/0.4ML SYR SUBCUT SCH (09:00)
[2020-07-28] MEDS ORDERED: ENOXAPARIN 30MG/0.3ML SYR SUBCUT SCH (09:00)
[2020-07-28] MEDS ORDERED: FUROSEMIDE 40MG/4ML VIAL IVP SCH (09:05)
[2020-07-28 10:08] VITALS: BP 134/84
[2020-07-28] MEDS ORDERED: POTASSIUM CHLORIDE 20MEQ TABLET SR PO NR (11:30)
[2020-07-28 11:43] VITALS: BP 139/95
[2020-07-28 16:00] VITALS: BP 113/73
[2020-07-28] MEDS: FUROSEMIDE 40MG/4ML VIAL IVP SCH (16:48)
[2020-07-28] MEDS: POTASSIUM CHLORIDE 20MEQ TABLET SR PO SCH (16:49)
[2020-07-28 20:00] VITALS: BP 129/81
[2020-07-28] MEDS: ENOXAPARIN 40MG/0.4ML SYR SUBCUT SCH (20:51)
[2020-07-29] VITALS: BP 124/8
[2020-07-29 04:00] VITALS: BP 116/73
[2020-07-29] MEDS: FUROSEMIDE 40MG/4ML VIAL IVP SCH (06:15)
[2020-07-29 07:04] LABS: BASOPHILS % 0.9 % (0.0-2.0); EOSINOPHILS % 4.3 % (0.0-5.0); HEMOGLOBIN. 15.3 g/dL (14.0-18.0); LYMPHOCYTES % 27.1 % (20.0-50.0); MEAN CORPUSCULAR HEMOGLOBIN 34.1 pg (28.0-32.0); MEAN CORPUSCULAR VOLUME 100.5 fL (80.0-94.0); MEAN PLATELET VOLUME 11.6 fl (7.4-10.4); MONOCYTES % 9.2 % (2.0-8.0); NEUTROPHILS % 58.5 % (40.0-76.0); PLATELET 126 x1000/uL (130-400); RED BLOOD CELL COUNT 4.48 mill/uL (4.7-6.1); RED CELL DISTRIBUTION WIDTH 14.6 % (11.6-14.6)
[2020-07-29 07:10] LABS: CHLORIDE 106 mEq/L (98-107)
[2020-07-29 08:00] VITALS: BP 118/86
[2020-07-29] MEDS: POTASSIUM CHLORIDE 20MEQ TABLET SR PO SCH (08:20)
[2020-07-29] MEDS: CARVEDILOL 3.125 MG TABLET PO SCH (08:20)
[2020-07-29] MEDS: ENOXAPARIN 40MG/0.4ML SYR SUBCUT SCH (08:20)
[2020-07-29] MEDS: LISINOPRIL 20MG TABLET PO SCH (08:27)
[2020-07-29] MEDS ORDERED: AMLODIPINE 2.5MG TABLET PO SCH (09:00)
[2020-07-29] MEDS ORDERED: ASPIRIN 81MG EC TABLET PO SCH (09:00)
[2020-07-29 11:50] VITALS: BP 98/69
[2020-07-29 14:20] VITALS: BP 98/69
== END 2020-07-29 15:05 | disposition home or self-care (01) | DRG 198 ==
LOC: ER 02:06 → 8WST 04:04 → ENRESERV 05:15 → 8WST 05:50
PROVIDERS: ADMIT Internal Medicine; ATTEND Internal Medicine
DX: I24.8 Other forms of acute ischemic heart disease (principal); I11.0 Hypertensive heart disease with heart failure; E44.1 Mild protein-calorie malnutrition; I42.0 Dilated cardiomyopathy; E66.01 Morbid (severe) obesity due to excess calories; E78.5 Hyperlipidemia, unspecified; E87.6 Hypokalemia; E87.8 Other disorders of electrolyte and fluid balance, not elsewhere classified; I50.23 Acute on chronic systolic (congestive) heart failure; R00.0 Tachycardia, unspecified; R74.0 Nonspecific elevation of levels of transaminase and lactic acid dehydrogenase [LDH]; Z79.899 Other long term (current) drug therapy; Z82.49 Family history of ischemic heart disease and other diseases of the circulatory system; Z91.19 Patient's noncompliance with other medical treatment and regimen; Z68.41 Body mass index [BMI] 40.0-44.9, adult; Z71.3 Dietary counseling and surveillance
CPT/HCPCS: 36415; 71045; 80048; 80053; 83880; 84484; 85025; 93005; 93306; 99285; J1650; J1940

== ENCOUNTER 2020-08-10 23:12 | Inpatient (IN) | payer MEDICAID ==
[~2020-08-10] VITALS: Ht 172.7 cm; Wt 155.6 kg
[2020-08-10] MEDS ORDERED: NITROGLYCERIN 0.4MG TABLET SL SL PRN (23:45)
[2020-08-10] MEDS ORDERED: FUROSEMIDE 40MG/4ML VIAL IV ONE (23:45)
[2020-08-11 00:13] LABS: BASOPHILS % 1.4 % (0.0-2.0); EOSINOPHILS % 1.5 % (0.0-5.0); HEMATOCRIT. 47.5 % (42.0-52.0); HEMOGLOBIN. 16.2 g/dL (14.0-18.0); MEAN CORPUSCULAR HEMOGLOBIN 34.4 pg (28.0-32.0); MEAN CORPUSCULAR VOLUME 100.7 fL (80.0-94.0); MEAN PLATELET VOLUME 11.2 fl (7.4-10.4); MONOCYTES % 9.8 % (2.0-8.0); NEUTROPHILS % 58.3 % (40.0-76.0); PLATELET 148 x1000/uL (130-400); RED BLOOD CELL COUNT 4.72 mill/uL (4.7-6.1); RED CELL DISTRIBUTION WIDTH 14.7 % (11.6-14.6)
[2020-08-11 00:18] LABS: CHLORIDE 104 mEq/L (98-107)
[2020-08-11] MEDS ORDERED: ASPIRIN 325MG EC TABLET PO ONE (01:15)
[2020-08-11 05:00] VITALS: BP 120/80
[2020-08-11] MEDS ORDERED: IPRATROPIUM/ALBUTEROL 0.5-3(2.5)MG/3ML NEB NEB PRN (07:15)
[2020-08-11] MEDS ORDERED: ONDANSETRON HCL 4MG/2ML INJ IV PRN (07:15)
[2020-08-11] MEDS ORDERED: CLONIDINE 0.1MG TABLET PO PRN (07:15)
[2020-08-11] MEDS ORDERED: DOCUSATE SODIUM 100MG CAPSULE PO PRN (07:15)
[2020-08-11] MEDS ORDERED: LORAZEPAM 2MG/ML CPJ IV PRN (07:15)
[2020-08-11] MEDS ORDERED: ACETAMINOPHEN 325MG TABLET PO PRN (07:15)
[2020-08-11] MEDS ORDERED: MAGNESIUM/ALUMINUM HYDROXIDE/SIMETHICONE 30ML UDC PO PRN (07:15)
[2020-08-11] MEDS ORDERED: DIPHENHYDRAMINE 50MG/ML VIAL IV PRN (07:15)
[2020-08-11] MEDS ORDERED: HYDROCODONE/ACETAMINOPHEN 5/325MG TABLET PO PRN (07:15)
[2020-08-11] MEDS ORDERED: GUAIFENESIN 200MG/10ML SUGAR FREE UDC PO PRN (07:15)
[2020-08-11] MEDS ORDERED: NA PHOS,M-B/NA PHOS,DI-BA ENEMA 118ML PR PRN (07:15)
[2020-08-11 08:01] VITALS: BP 106/62
[2020-08-11] MEDS: FUROSEMIDE 40MG/4ML VIAL IV SCH (08:50)
[2020-08-11] MEDS: ASPIRIN 81MG EC TABLET PO SCH (08:50)
[2020-08-11] MEDS: ENOXAPARIN 40MG/0.4ML SYR SUBCUT SCH ×2 (08:51→20:35)
[2020-08-11] MEDS ORDERED: ENOXAPARIN 40MG/0.4ML SYR SUBCUT SCH (09:00)
[2020-08-11 09:48] LABS: CHLORIDE 103 mEq/L (98-107)
[2020-08-11 11:47] VITALS: BP 125/62
[2020-08-11 16:00] VITALS: BP 107/79
[2020-08-11 17:45] LABS: CREATINE KINASE MB FRACTION 1.1 ng/mL (0.5-3.6)
[2020-08-11] MEDS: MORPHINE SULFATE 2 MG/ML CPJ (NOT FOR IM USE) IV PRN (18:37)
[2020-08-11 20:00] VITALS: BP 122/84
[2020-08-12] VITALS: BP 129/82
[2020-08-12 00:44] LABS: CREATINE KINASE 144 IU/L (39-308)
[2020-08-12 00:47] LABS: CREATINE KINASE MB FRACTION < 1.0 ng/mL (0.5-3.6)
[2020-08-12 04:00] VITALS: BP 133/85
[2020-08-12 08:00] VITALS: BP_SYST 134; BP_DIAS 86; BP_DIAS 89
[2020-08-12 08:47] LABS: EOSINOPHILS % 3.2 % (0.0-5.0); HEMATOCRIT. 45.4 % (42.0-52.0); HEMOGLOBIN. 15.6 g/dL (14.0-18.0); LYMPHOCYTES % 29.5 % (20.0-50.0); MEAN CORPUSCULAR HEMOGLOBIN 34.1 pg (28.0-32.0); MEAN CORPUSCULAR VOLUME 99.7 fL (80.0-94.0); MEAN PLATELET VOLUME 11.7 fl (7.4-10.4); MONOCYTES % 9.5 % (2.0-8.0); NEUTROPHILS % 56.8 % (40.0-76.0); PLATELET 108 x1000/uL (130-400); RED BLOOD CELL COUNT 4.56 mill/uL (4.7-6.1); RED CELL DISTRIBUTION WIDTH 14.6 % (11.6-14.6)
[2020-08-12 09:03] LABS: CHLORIDE 103 mEq/L (98-107)
[2020-08-12 09:11] LABS: CREATINE KINASE MB FRACTION 1.1 ng/mL (0.5-3.6); LDL CHOLESTEROL 144 mg/dL (5-100)
[2020-08-12 09:12] LABS: T4 FREE 1.27 ng/dL (0.76-1.46)
[2020-08-12 09:13] LABS: CREATINE KINASE 136 IU/L (39-308); HDL CHOLESTEROL 30 mg/dL (40-59)
[2020-08-12] MEDS: FUROSEMIDE 40MG/4ML VIAL IV SCH (09:48)
[2020-08-12] MEDS: ENOXAPARIN 40MG/0.4ML SYR SUBCUT SCH ×2 (09:49→20:10)
[2020-08-12] MEDS: ASPIRIN 81MG EC TABLET PO SCH (09:49)
[2020-08-12] MEDS: MORPHINE SULFATE 2 MG/ML CPJ (NOT FOR IM USE) IV PRN (10:59)
[2020-08-12 12:00] VITALS: BP 133/89
[2020-08-12 16:00] VITALS: BP 129/83
[2020-08-12 20:00] VITALS: BP 109/73
[2020-08-13] VITALS: BP 104/66
[2020-08-13 04:00] VITALS: BP 133/89
[2020-08-13 08:00] VITALS: BP 131/92
[2020-08-13] MEDS: ASPIRIN 81MG EC TABLET PO SCH (10:13)
[2020-08-13] MEDS: ENOXAPARIN 40MG/0.4ML SYR SUBCUT SCH (10:13)
[2020-08-13] MEDS: FUROSEMIDE 40MG/4ML VIAL IV SCH (10:13)
[2020-08-13 12:00] VITALS: BP 124/84
== END 2020-08-13 15:00 | disposition left against medical advice (07) | DRG 133 ==
LOC: ER 23:12 → ENRESERV 08-11 03:00 → 8WST 08-11 04:45
PROVIDERS: ADMIT Internal Medicine; ATTEND Internal Medicine
DX: J96.00 Acute respiratory failure, unspecified whether with hypoxia or hypercapnia (principal); N17.0 Acute kidney failure with tubular necrosis; E66.01 Morbid (severe) obesity due to excess calories; E78.5 Hyperlipidemia, unspecified; I11.0 Hypertensive heart disease with heart failure; I42.9 Cardiomyopathy, unspecified; R74.0 Nonspecific elevation of levels of transaminase and lactic acid dehydrogenase [LDH]; Z79.899 Other long term (current) drug therapy; Z68.43 Body mass index [BMI] 50.0-59.9, adult; I50.33 Acute on chronic diastolic (congestive) heart failure
CPT/HCPCS: 36415; 71045; 80048; 80053; 80061; 82550; 82553; 83036; 83880; 84439; 84443; 84484; 85025; 85379; 93005; 93970; 99291; J1650; J1940; J2270

== ENCOUNTER 2020-08-27 21:52 | Inpatient (IN) | payer MEDICAID ==
[~2020-08-27] VITALS: Ht 190.5 cm; Wt 151.5 kg
[2020-08-27] MEDS ORDERED: ONDANSETRON HCL 4MG/2ML INJ IV STA (23:55)
[2020-08-27] MEDS ORDERED: MORPHINE SULFATE 4 MG/ML CPJ (NOT FOR IM USE) IV STA (23:55)
[2020-08-28 00:10] LABS: BASOPHILS % 0.8 % (0.0-2.0); EOSINOPHILS % 1.8 % (0.0-5.0); HEMATOCRIT. 43.8 % (42.0-52.0); HEMOGLOBIN. 15.3 g/dL (14.0-18.0); LYMPHOCYTES % 22.5 % (20.0-50.0); MEAN CORPUSCULAR VOLUME 100.2 fL (80.0-94.0); MEAN PLATELET VOLUME 11.3 fl (7.4-10.4); MONOCYTES % 8.5 % (2.0-8.0); NEUTROPHILS % 66.4 % (40.0-76.0); PLATELET 122 x1000/uL (130-400); RED BLOOD CELL COUNT 4.37 mill/uL (4.7-6.1); RED CELL DISTRIBUTION WIDTH 14.6 % (11.6-14.6)
[2020-08-28 00:16] LABS: CHLORIDE 100 mEq/L (98-107)
[2020-08-28 00:24] LABS: INR 1.2; PROTHROMBIN TIME 12.3 sec (9.6-11.0)
[2020-08-28] MEDS ORDERED: ASPIRIN 81MG TABLET PO ONE (00:45)
[2020-08-28 04:00] VITALS: BP 109/72
[2020-08-28] MEDS ORDERED: [UNRECOGNIZED DRUG - CODE] PO (04:22)
[2020-08-28] MEDS ORDERED: SACU1TAB PO (04:22)
[2020-08-28] MEDS ORDERED: MORPHINE SULFATE 2 MG/ML CPJ (NOT FOR IM USE) IV PRN (05:00)
[2020-08-28 08:30] VITALS: BP 110/58
[2020-08-28] MEDS: ASPIRIN 81MG TABLET PO SCH (09:03)
[2020-08-28] MEDS: FUROSEMIDE 40MG TABLET PO SCH ×2 (09:04→20:20)
[2020-08-28] MEDS: CARVEDILOL 6.25 MG TABLET PO SCH ×2 (09:05→20:20)
[2020-08-28] MEDS: POTASSIUM CHLORIDE 20MEQ TABLET SR PO SCH (09:06)
[2020-08-28] MEDS: LOSARTAN POTASSIUM 25 MG TABLET PO SCH (09:10)
[2020-08-28 09:42] LABS: BASOPHILS % 0.5 % (0.0-2.0); EOSINOPHILS % 2.7 % (0.0-5.0); HEMATOCRIT. 42.1 % (42.0-52.0); HEMOGLOBIN. 14.5 g/dL (14.0-18.0); MEAN CORPUSCULAR HEMOGLOBIN 34.8 pg (28.0-32.0); MEAN CORPUSCULAR VOLUME 100.8 fL (80.0-94.0); MEAN PLATELET VOLUME 11.6 fl (7.4-10.4); MONOCYTES % 9.8 % (2.0-8.0); PLATELET 100 x1000/uL (130-400); RED BLOOD CELL COUNT 4.18 mill/uL (4.7-6.1); RED CELL DISTRIBUTION WIDTH 14.5 % (11.6-14.6)
[2020-08-28 09:46] LABS: CHLORIDE 101 mEq/L (98-107)
[2020-08-28] MEDS ORDERED: POTASSIUM CHLORIDE 20MEQ TABLET SR PO SCH (10:30)
[2020-08-28] MEDS: ENOXAPARIN 40MG/0.4ML SYR SUBCUT SCH (11:13)
[2020-08-28 12:07] VITALS: BP 124/80
[2020-08-28 16:05] VITALS: BP 130/68
[2020-08-28] MEDS: TRAMADOL 50MG TABLET PO PRN (16:30)
[2020-08-28 18:58] LABS: CLARITY URINE CLEAR (CLEAR); COLOR URINE DARK YELLOW (YELLOW); KETONES URINE NEGATIVE (NEGATIVE); LEUKOCYTE ESTERASE URINE 1+ (NEGATIVE); NITRITE URINE NEGATIVE (NEGATIVE); OCCULT BLOOD URINE TRACE (NEGATIVE); PH URINE 5.5 (4.5-8.0); PROTEIN URINE NEGATIVE (NEGATIVE); SPECIFIC GRAVITY URINE 1.015 (1.005-1.030)
[2020-08-28 19:37] LABS: *AMPHETAMINES SCREEN URINE NEGATIVE (NEGATIVE); *BARBITURATES SCREEN URINE NEGATIVE (NEGATIVE); *BENZODIAZEPINES SCREEN URINE NEGATIVE (NEGATIVE); *COCAINE SCREEN URINE NEGATIVE (NEGATIVE); METHADONE URINE SCREEN NEGATIVE (NEGATIVE); OPIATES URINE SCREEN PRESUMTIVE POSITIVE (NEGATIVE); PHENCYCLIDINE URINE SCREEN NEGATIVE (NEGATIVE)
[2020-08-28 19:38] LABS: CANNABINOID URINE SCREEN NEGATIVE (NEGATIVE)
[2020-08-28 20:00] VITALS: BP 116/79
[2020-08-28] MEDS ORDERED: POTASSIUM CHLORIDE 20MEQ TABLET SR PO NR (20:00)
[2020-08-28] MEDS: ATORVASTATIN CALCIUM 10MG TABLET PO SCH (20:20)
[2020-08-29] VITALS: BP 109/65
[2020-08-29 06:08] LABS: HEMATOCRIT. 41.4 % (42.0-52.0); HEMOGLOBIN. 14.2 g/dL (14.0-18.0); MEAN CORPUSCULAR HEMOGLOBIN 34.4 pg (28.0-32.0); MEAN CORPUSCULAR VOLUME 100.7 fL (80.0-94.0); MEAN PLATELET VOLUME 11.6 fl (7.4-10.4); PLATELET 85 x1000/uL (130-400); RED BLOOD CELL COUNT 4.11 mill/uL (4.7-6.1); RED CELL DISTRIBUTION WIDTH 14.4 % (11.6-14.6)
[2020-08-29 06:13] LABS: CHLORIDE 103 mEq/L (98-107)
[2020-08-29 08:00] VITALS: BP 117/68
[2020-08-29] MEDS: FUROSEMIDE 40MG TABLET PO SCH (09:05)
[2020-08-29] MEDS: ENOXAPARIN 40MG/0.4ML SYR SUBCUT SCH (09:05)
[2020-08-29] MEDS: POTASSIUM CHLORIDE 20MEQ TABLET SR PO SCH (09:06)
[2020-08-29] MEDS: CARVEDILOL 6.25 MG TABLET PO SCH ×2 (09:06→22:22)
[2020-08-29] MEDS: ASPIRIN 81MG TABLET PO SCH (09:06)
[2020-08-29] MEDS: LOSARTAN POTASSIUM 25 MG TABLET PO SCH (09:06)
[2020-08-29] MEDS ORDERED: POTASSIUM CHLORIDE 20MEQ TABLET SR PO SCH (10:00)
[2020-08-29] MEDS ORDERED: FUROSEMIDE 40MG/4ML VIAL IVP SCH (10:00)
[2020-08-29] MEDS: TRAMADOL 50MG TABLET PO PRN ×2 (10:55→22:26)
[2020-08-29 12:00] VITALS: BP 112/78
[2020-08-29 16:00] VITALS: BP 113/82
[2020-08-29] MEDS: FUROSEMIDE 100MG/10ML VIAL IVP SCH (16:45)
[2020-08-29 18:24] LABS: PLATELET ESTIMATE DECREASED
[2020-08-29 20:00] VITALS: BP 111/71
[2020-08-29] MEDS: ATORVASTATIN CALCIUM 10MG TABLET PO SCH (22:23)
[2020-08-30] VITALS (7 sets, daily range): BP systolic 106–121; BP diastolic 56–78
[2020-08-30 06:15] LABS: CHLORIDE 97 mEq/L (98-107)
[2020-08-30] MEDS: FUROSEMIDE 100MG/10ML VIAL IVP SCH (06:22)
[2020-08-30 06:24] LABS: BASOPHILS % 0.9 % (0.0-2.0); EOSINOPHILS % 3.1 % (0.0-5.0); HEMATOCRIT. 42.2 % (42.0-52.0); HEMOGLOBIN. 14.3 g/dL (14.0-18.0); LYMPHOCYTES % 31.9 % (20.0-50.0); MEAN CORPUSCULAR HEMOGLOBIN 34.5 pg (28.0-32.0); MEAN CORPUSCULAR VOLUME 101.8 fL (80.0-94.0); MEAN PLATELET VOLUME 11.8 fl (7.4-10.4); MONOCYTES % 12.9 % (2.0-8.0); NEUTROPHILS % 51.2 % (40.0-76.0); PLATELET 99 x1000/uL (130-400); RED BLOOD CELL COUNT 4.15 mill/uL (4.7-6.1); RED CELL DISTRIBUTION WIDTH 14.3 % (11.6-14.6)
[2020-08-30 08:09] LABS: *AMPHETAMINES SCREEN URINE NEGATIVE (NEGATIVE); *BARBITURATES SCREEN URINE NEGATIVE (NEGATIVE); *COCAINE SCREEN URINE NEGATIVE (NEGATIVE); METHADONE URINE SCREEN NEGATIVE (NEGATIVE); OPIATES URINE SCREEN NEGATIVE (NEGATIVE)
[2020-08-30 08:10] LABS: CANNABINOID URINE SCREEN NEGATIVE (NEGATIVE); PHENCYCLIDINE URINE SCREEN NEGATIVE (NEGATIVE)
[2020-08-30 08:19] LABS: *BENZODIAZEPINES SCREEN URINE NEGATIVE (NEGATIVE)
[2020-08-30] MEDS: ASPIRIN 81MG TABLET PO SCH (08:45)
[2020-08-30] MEDS: LOSARTAN POTASSIUM 25 MG TABLET PO SCH (08:45)
[2020-08-30] MEDS: POTASSIUM CHLORIDE 20MEQ TABLET SR PO SCH (08:46)
[2020-08-30] MEDS: CARVEDILOL 6.25 MG TABLET PO SCH (08:46)
[2020-08-30] MEDS: ENOXAPARIN 40MG/0.4ML SYR SUBCUT SCH (08:51)
[2020-08-30] MEDS ORDERED: POTASSIUM CHLORIDE 20MEQ TABLET SR PO SCH (10:15)
[2020-08-30] MEDS ORDERED: POTA20TA82 MT (14:12)
== END 2020-08-30 17:50 | disposition home or self-care (01) | DRG 194 ==
LOC: ER 21:52 → EDBEDREQTM 08-28 01:42 → EDBEDREQ 08-28 01:42 → ENRESERV 08-28 02:19 → 6WST 08-28 03:56
PROVIDERS: ADMIT Internal Medicine; ATTEND Internal Medicine
DX: I11.0 Hypertensive heart disease with heart failure (principal); E87.6 Hypokalemia; E87.1 Hypo-osmolality and hyponatremia; E78.5 Hyperlipidemia, unspecified; I50.23 Acute on chronic systolic (congestive) heart failure; E66.01 Morbid (severe) obesity due to excess calories; I36.1 Nonrheumatic tricuspid (valve) insufficiency; Z68.41 Body mass index [BMI] 40.0-44.9, adult; Z79.82 Long term (current) use of aspirin; Z79.84 Long term (current) use of oral hypoglycemic drugs; Z79.899 Other long term (current) drug therapy; Z82.49 Family history of ischemic heart disease and other diseases of the circulatory system; Z59.0 Homelessness; R10.9 Unspecified abdominal pain; R74.01 Elevation of levels of liver transaminase levels; G47.33 Obstructive sleep apnea (adult) (pediatric)
CPT/HCPCS: 36415; 71045; 80048; 80053; 80305; 81003; 83880; 84484; 85025; 93005; 96374; 99285; J1650; J1940; J2270; J2405

== ENCOUNTER 2021-07-09 16:51 | Inpatient (IN) | payer MEDICAID ==
[~2021-07-09] VITALS: Ht 190.5 cm; Wt 164.3 kg
[~2021-07-09 16:51] MED LIST changes: -ASPI-1158 PO; +ASPI-1406 PO; +COLC0.6C3 MT; -LOSA25TA3 PO; +P20 MT; +POTA20TA82 MT; +SACU1TAB PO; +[UNRECOGNIZED DRUG - CODE] PO
[2021-07-09 20:21] LABS: BASOPHILS % 0.6 % (0.0-2.0); EOSINOPHILS % 1.6 % (0.0-5.0); HEMATOCRIT. 44.9 % (42.0-52.0); HEMOGLOBIN. 15.4 g/dL (14.0-18.0); LYMPHOCYTES % 24.9 % (20.0-50.0); MEAN CORPUSCULAR HEMOGLOBIN 33.6 pg (28.0-32.0); MEAN CORPUSCULAR VOLUME 98.2 fL (80.0-94.0); MEAN PLATELET VOLUME 10.9 fl (7.4-10.4); MONOCYTES % 11.6 % (2.0-8.0); NEUTROPHILS % 61.3 % (40.0-76.0); PLATELET 157 x1000/uL (130-400); RED BLOOD CELL COUNT 4.58 mill/uL (4.7-6.1); RED CELL DISTRIBUTION WIDTH 16.6 % (11.6-14.6)
[2021-07-09 20:25] LABS: CHLORIDE 104 mEq/L (98-107)
[2021-07-09] MEDS ORDERED: ACETAMINOPHEN 325MG TABLET PO ONE (22:00)
[2021-07-10] VITALS (14 sets, daily range): BP systolic 91–157; BP diastolic 50–101
[2021-07-10] MEDS ORDERED: CLONIDINE 0.1MG TABLET PO PRN (09:45)
[2021-07-10] MEDS ORDERED: ONDANSETRON HCL 4MG/2ML INJ IV PRN (09:45)
[2021-07-10] MEDS ORDERED: DIPHENHYDRAMINE 50MG/ML VIAL IV PRN (09:45)
[2021-07-10] MEDS ORDERED: ACETAMINOPHEN 325MG TABLET PO PRN (09:45)
[2021-07-10] MEDS ORDERED: IPRATROPIUM/ALBUTEROL 0.5-3(2.5)MG/3ML NEB HHN PRN (09:45)
[2021-07-10] MEDS ORDERED: NALOXONE HCL 0.4MG/ML VIAL IV PRN (10:00)
[2021-07-10] MEDS: ENOXAPARIN 40MG/0.4ML SYR SUBCUT SCH ×2 (10:34→21:47)
[2021-07-10] MEDS: MORPHINE SULFATE 2 MG/ML CPJ (NOT FOR IM USE) IV PRN ×3 (10:35→21:48)
[2021-07-10] MEDS: CARVEDILOL 6.25 MG TABLET PO SCH ×2 (10:42→21:47)
[2021-07-10] MEDS: ASPIRIN 81MG EC TABLET PO SCH (10:44)
[2021-07-10 11:54] LABS: CHLORIDE 105 mEq/L (98-107)
[2021-07-10] MEDS ORDERED: DEXTROSE 50% WATER 50ML SYRINGE IV PRN (14:00)
[2021-07-10] MEDS: BLOOD SUGAR DIAGNOSTIC STRIP TEST SCH ×2 (16:50→21:00)
[2021-07-10] MEDS: INSULIN LISPRO 100 UNITS/ML SUBCUT SCH ×2 (17:20→21:00)
[2021-07-10] MEDS: ATORVASTATIN CALCIUM 10MG TABLET PO SCH (21:47)
[2021-07-11] VITALS (17 sets, daily range): BP systolic 105–161; BP diastolic 41–94
[2021-07-11] MEDS: BLOOD SUGAR DIAGNOSTIC STRIP TEST SCH ×4 (05:50→21:00)
[2021-07-11 06:16] LABS: CHLORIDE 104 mEq/L (98-107)
[2021-07-11] MEDS: INSULIN LISPRO 100 UNITS/ML SUBCUT SCH ×4 (06:25→21:00)
[2021-07-11 06:28] LABS: LDL CHOLESTEROL 113 mg/dL (5-100)
[2021-07-11 06:29] LABS: HDL CHOLESTEROL 31 mg/dL (40-59)
[2021-07-11] MEDS: MORPHINE SULFATE 2 MG/ML CPJ (NOT FOR IM USE) IV PRN ×3 (06:36→19:59)
[2021-07-11 07:30] LABS: BASOPHILS % 0.8 % (0.0-2.0); EOSINOPHILS % 2.1 % (0.0-5.0); HEMOGLOBIN. 14.3 g/dL (14.0-18.0); LYMPHOCYTES % 21.8 % (20.0-50.0); MEAN CORPUSCULAR HEMOGLOBIN 32.9 pg (28.0-32.0); MEAN CORPUSCULAR VOLUME 99.1 fL (80.0-94.0); MEAN PLATELET VOLUME 11.7 fl (7.4-10.4); MONOCYTES % 11.3 % (2.0-8.0); PLATELET 132 x1000/uL (130-400); RED BLOOD CELL COUNT 4.34 mill/uL (4.7-6.1); RED CELL DISTRIBUTION WIDTH 16.2 % (11.6-14.6)
[2021-07-11] MEDS: ASPIRIN 81MG EC TABLET PO SCH (07:57)
[2021-07-11] MEDS: CARVEDILOL 6.25 MG TABLET PO SCH ×2 (07:58→21:49)
[2021-07-11] MEDS: ENOXAPARIN 40MG/0.4ML SYR SUBCUT SCH ×2 (10:42→21:49)
[2021-07-11] MEDS: FUROSEMIDE 40MG TABLET PO SCH ×2 (11:30→12:38)
[2021-07-11] MEDS: ATORVASTATIN CALCIUM 10MG TABLET PO SCH (21:49)
[2021-07-12] VITALS (11 sets, daily range): BP systolic 111–146; BP diastolic 35–82
[2021-07-12] MEDS: MORPHINE SULFATE 2 MG/ML CPJ (NOT FOR IM USE) IV PRN (04:11)
[2021-07-12] MEDS: BLOOD SUGAR DIAGNOSTIC STRIP TEST SCH ×2 (06:50→11:50)
[2021-07-12] MEDS: INSULIN LISPRO 100 UNITS/ML SUBCUT SCH ×2 (07:20→12:06)
[2021-07-12 07:37] LABS: BASOPHILS % 0.9 % (0.0-2.0); EOSINOPHILS % 2.4 % (0.0-5.0); HEMATOCRIT. 41.5 % (42.0-52.0); HEMOGLOBIN. 14.3 g/dL (14.0-18.0); LYMPHOCYTES % 27.1 % (20.0-50.0); MEAN CORPUSCULAR HEMOGLOBIN 33.8 pg (28.0-32.0); MEAN CORPUSCULAR VOLUME 98.3 fL (80.0-94.0); MEAN PLATELET VOLUME 11.1 fl (7.4-10.4); MONOCYTES % 9.8 % (2.0-8.0); NEUTROPHILS % 59.8 % (40.0-76.0); PLATELET 139 x1000/uL (130-400); RED BLOOD CELL COUNT 4.22 mill/uL (4.7-6.1); RED CELL DISTRIBUTION WIDTH 16.2 % (11.6-14.6)
[2021-07-12 07:43] LABS: CHLORIDE 104 mEq/L (98-107)
[2021-07-12] MEDS: ASPIRIN 81MG EC TABLET PO SCH (08:28)
[2021-07-12] MEDS: CARVEDILOL 6.25 MG TABLET PO SCH (08:29)
[2021-07-12] MEDS ORDERED: FUROSEMIDE 20MG TABLET PO SCH (09:00)
[2021-07-12] MEDS ORDERED: ATOR40TA70 MT (09:16)
[2021-07-12] MEDS: ENOXAPARIN 40MG/0.4ML SYR SUBCUT SCH (10:00)
== END 2021-07-12 15:45 | disposition home or self-care (01) | DRG 206 ==
LOC: ER 16:51 → EDBEDREQ 07-10 02:39 → EDBEDREQTM 07-10 02:39 → MICUSO 07-10 06:14 → 3WST 07-10 08:32
PROVIDERS: ADMIT Internal Medicine; ATTEND Internal Medicine
PROC: 4B02XTZ Measurement of Cardiac Defibrillator, External Approach (ICD-10-PCS; principal; 2021-07-10)
DX: T82.119A Breakdown (mechanical) of unspecified cardiac electronic device, initial encounter (principal); I42.0 Dilated cardiomyopathy; I11.0 Hypertensive heart disease with heart failure; I50.22 Chronic systolic (congestive) heart failure; E66.01 Morbid (severe) obesity due to excess calories; E78.5 Hyperlipidemia, unspecified; F10.10 Alcohol abuse, uncomplicated; Y71.2 Prosthetic and other implants, materials and accessory cardiovascular devices associated with adverse incidents; R74.01 Elevation of levels of liver transaminase levels; M10.9 Gout, unspecified; Z95.810 Presence of automatic (implantable) cardiac defibrillator; Z59.0 Homelessness; Z82.49 Family history of ischemic heart disease and other diseases of the circulatory system; Z68.42 Body mass index [BMI] 45.0-49.9, adult; Y92.89 Other specified places as the place of occurrence of the external cause
CPT/HCPCS: 36415; 71045; 73200; 80048; 80053; 80061; 82962; 83036; 83735; 83880; 84443; 84484; 85025; 93005; 93306; 93970; 93971; 99285; J1650; J2270

== ENCOUNTER 2021-07-23 17:33 | Inpatient (IN) | payer MEDICAID ==
[~2021-07-23] VITALS: Ht 190.5 cm; Wt 178.4 kg
[~2021-07-23 17:33] MED LIST changes: -ATOR10TA PO; +ATOR40TA70 MT; -FURO40TA5 MT; -NAPR-679 PO; -NAPR500T7 MT; -P20 MT; -POTA20TA82 MT
[2021-07-23 18:37] LABS: BASOPHILS % 0.9 % (0.0-2.0); EOSINOPHILS % 2.5 % (0.0-5.0); HEMATOCRIT. 44.9 % (42.0-52.0); HEMOGLOBIN. 15.2 g/dL (14.0-18.0); LYMPHOCYTES % 24.8 % (20.0-50.0); MEAN CORPUSCULAR HEMOGLOBIN 32.9 pg (28.0-32.0); MEAN CORPUSCULAR VOLUME 97.3 fL (80.0-94.0); MEAN PLATELET VOLUME 11.2 fl (7.4-10.4); MONOCYTES % 6.5 % (2.0-8.0); NEUTROPHILS % 65.3 % (40.0-76.0); PLATELET 146 x1000/uL (130-400); RED BLOOD CELL COUNT 4.61 mill/uL (4.7-6.1); RED CELL DISTRIBUTION WIDTH 15.2 % (11.6-14.6)
[2021-07-23 18:41] LABS: CHLORIDE 110 mEq/L (98-107)
[2021-07-23 18:47] LABS: INR 1.1; PROTHROMBIN TIME 11.7 sec (9.6-11.0)
[2021-07-23] MEDS ORDERED: LORAZEPAM 2MG/ML CPJ IV PRN (22:45)
[2021-07-23] MEDS ORDERED: DIPHENHYDRAMINE 50MG/ML VIAL IV PRN (22:45)
[2021-07-23] MEDS ORDERED: CLONIDINE 0.1MG TABLET PO PRN (22:45)
[2021-07-23] MEDS ORDERED: GUAIFENESIN 200MG/10ML SUGAR FREE UDC PO PRN (22:45)
[2021-07-23] MEDS ORDERED: IPRATROPIUM/ALBUTEROL 0.5-3(2.5)MG/3ML NEB NEB PRN (22:45)
[2021-07-23] MEDS ORDERED: NA PHOS,M-B/NA PHOS,DI-BA ENEMA 118ML PR PRN (22:45)
[2021-07-23] MEDS ORDERED: HYDROCODONE/ACETAMINOPHEN 5/325MG TABLET PO PRN (22:45)
[2021-07-23] MEDS ORDERED: MAGNESIUM/ALUMINUM HYDROXIDE/SIMETHICONE 30ML UDC PO PRN (22:45)
[2021-07-23] MEDS ORDERED: DOCUSATE SODIUM 100MG CAPSULE PO PRN (22:45)
[2021-07-23] MEDS ORDERED: ONDANSETRON HCL 4MG/2ML INJ IV PRN (22:45)
[2021-07-23] MEDS ORDERED: ACETAMINOPHEN 325MG TABLET PO PRN (22:45)
[2021-07-23] MEDS: ENOXAPARIN 40MG/0.4ML SYR SUBCUT SCH (23:14)
[2021-07-24 00:10] VITALS: BP 134/91
[2021-07-24 04:00] VITALS: BP 124/88
[2021-07-24 06:54] LABS: BASOPHILS % 0.7 % (0.0-2.0); EOSINOPHILS % 3.6 % (0.0-5.0); HEMOGLOBIN. 13.8 g/dL (14.0-18.0); LYMPHOCYTES % 33.5 % (20.0-50.0); MEAN CORPUSCULAR HEMOGLOBIN 32.7 pg (28.0-32.0); MEAN CORPUSCULAR VOLUME 99.1 fL (80.0-94.0); MEAN PLATELET VOLUME 11.5 fl (7.4-10.4); MONOCYTES % 11.3 % (2.0-8.0); NEUTROPHILS % 50.9 % (40.0-76.0); PLATELET 114 x1000/uL (130-400); RED BLOOD CELL COUNT 4.23 mill/uL (4.7-6.1); RED CELL DISTRIBUTION WIDTH 14.9 % (11.6-14.6)
[2021-07-24 07:42] LABS: CHLORIDE 110 mEq/L (98-107)
[2021-07-24 08:00] VITALS: BP 106/62
[2021-07-24 08:03] LABS: HDL CHOLESTEROL 30 mg/dL (40-59)
[2021-07-24 08:06] LABS: T4 FREE 0.98 ng/dL (0.76-1.46)
[2021-07-24 08:13] LABS: LDL CHOLESTEROL 68 mg/dL (5-100)
[2021-07-24] MEDS ORDERED: GENTAMICIN SULF 40MG/ML 2ML VIAL ONE (10:22)
[2021-07-24] MEDS ORDERED: GENTAMICIN/NS IRRIGATION 500 ML IR ONE (10:23)
[2021-07-24] MEDS ORDERED: LIDOCAINE HCL 1% 20ML VIAL (Pyxis) INJ ONE (10:23)
[2021-07-24] MEDS ORDERED: METOCLOPRAMIDE HCL 10MG/2ML VIAL ONE (10:31)
[2021-07-24] MEDS ORDERED: ROCURONIUM BROMIDE 10MG/ML VIAL 5ML IV ONE ×3 (10:31→14:46)
[2021-07-24] MEDS ORDERED: FENTANYL CITRATE/PF 50MCG/ML 2ML VIAL ONE ×2 (10:31→14:46)
[2021-07-24] MEDS ORDERED: PHENYLEPHRINE HCL 10 MG/ML 1ML (IV VIAL) IV ONE (10:31)
[2021-07-24] MEDS ORDERED: ONDANSETRON HCL 4MG/2ML INJ ONE (10:31)
[2021-07-24] MEDS ORDERED: MIDAZOLAM HCL 2 MG/2 ML VIAL ONE (10:31)
[2021-07-24] MEDS ORDERED: PROPOFOL 200MG/20ML VIAL IV ONE (10:32)
[2021-07-24] MEDS ORDERED: NEOSTIGMINE METHYLSULFATE 1MG/ML 10 ML VIAL ONE ×2 (10:32→15:21)
[2021-07-24] MEDS ORDERED: SUCCINYLCHOLINE CHLORIDE 200MG/10ML IV ONE (10:32)
[2021-07-24] MEDS ORDERED: EPHEDRINE SULFATE 50MG/ML VIAL ONE (10:33)
[2021-07-24] MEDS ORDERED: ETOMIDATE 2MG/ML 10ML VIAL IV ONE (10:33)
[2021-07-24] MEDS ORDERED: SODIUM CHLORIDE 0.9% 10ML VIAL ONE (10:33)
[2021-07-24] MEDS ORDERED: CEFAZOLIN SODIUM 1000MG/VIAL ONE ×2 (10:33→11:25)
[2021-07-24] MEDS ORDERED: GLYCOPYRROLATE 0.2 MG/ML 2ML VIAL ONE ×2 (10:33→15:21)
[2021-07-24] MEDS ORDERED: IODIXANOL 320MG/ML 100 ML BOTTLE IV ONE (10:51)
[2021-07-24] MEDS ORDERED: DEXAMETHASONE 4MG/ML 1ML VIAL ONE (11:00)
[2021-07-24] MEDS ORDERED: HYDROCODONE/ACETAMINOPHEN 5/325MG TABLET PO PRN (13:00)
[2021-07-24] MEDS ORDERED: NALOXONE HCL 0.4MG/ML VIAL IV PRN (13:30)
[2021-07-24] MEDS ORDERED: FUROSEMIDE 20MG/2ML VIAL ONE (14:25)
[2021-07-24] MEDS: MORPHINE SULFATE 2 MG/ML CPJ (NOT FOR IM USE) IV PRN ×2 (17:10→23:24)
[2021-07-24] MEDS: ENOXAPARIN 40MG/0.4ML SYR SUBCUT SCH (23:00)
[2021-07-24 23:49] VITALS: BP 136/77
[2021-07-25 02:00] VITALS: BP 126/78
[2021-07-25] MEDS: CEFAZOLIN 1000MG PREMIX 50 ML IV SCH ×2 (02:42→04:40)
[2021-07-25 04:00] VITALS: BP 122/63
[2021-07-25 07:17] LABS: BASOPHILS % 0.2 % (0.0-2.0); HEMATOCRIT. 40.8 % (42.0-52.0); HEMOGLOBIN. 13.9 g/dL (14.0-18.0); LYMPHOCYTES % 10.8 % (20.0-50.0); MEAN CORPUSCULAR VOLUME 96.7 fL (80.0-94.0); MEAN PLATELET VOLUME 11.4 fl (7.4-10.4); MONOCYTES % 6.6 % (2.0-8.0); NEUTROPHILS % 82.4 % (40.0-76.0); PLATELET 126 x1000/uL (130-400); RED BLOOD CELL COUNT 4.22 mill/uL (4.7-6.1); RED CELL DISTRIBUTION WIDTH 15.2 % (11.6-14.6)
[2021-07-25 08:00] VITALS: BP 152/84
[2021-07-25 08:03] LABS: CHLORIDE 103 mEq/L (98-107)
[2021-07-25] MEDS: MORPHINE SULFATE 2 MG/ML CPJ (NOT FOR IM USE) IV PRN ×2 (09:41→21:20)
[2021-07-25] MEDS: ENOXAPARIN 40MG/0.4ML SYR SUBCUT SCH ×2 (11:42→23:52)
[2021-07-25 12:00] VITALS: BP 151/95
[2021-07-25 16:00] VITALS: BP 145/100
[2021-07-25 20:00] VITALS: BP 146/79
[2021-07-26] VITALS: BP 122/79
[2021-07-26 02:00] VITALS: BP 115/70
[2021-07-26 04:00] VITALS: BP 126/91
[2021-07-26] MEDS: MORPHINE SULFATE 2 MG/ML CPJ (NOT FOR IM USE) IV PRN (04:47)
[2021-07-26 08:00] VITALS: BP 161/72
[2021-07-26] MEDS: ENOXAPARIN 40MG/0.4ML SYR SUBCUT SCH (10:13)
[2021-07-26 12:00] VITALS: BP 153/117
[2021-07-26 13:51] VITALS: BP 153/117
== END 2021-07-26 15:15 | disposition home or self-care (01) | DRG 176 ==
LOC: ER 17:33 → 6WST 21:24 → ENRESERV 23:20 → 3WST 07-24 23:03
PROVIDERS: ADMIT Internal Medicine; ATTEND Internal Medicine
PROC: 0JH608Z Insertion of Defibrillator Generator into Chest Subcutaneous Tissue and Fascia, Open Approach (ICD-10-PCS; principal; 2021-07-24)
PROC: 0JPT0PZ Removal of Cardiac Rhythm Related Device from Trunk Subcutaneous Tissue and Fascia, Open Approach (ICD-10-PCS; 2021-07-24)
PROC: B51NYZA Fluoroscopy of Left Upper Extremity Veins using Other Contrast, Guidance (ICD-10-PCS; 2021-07-24)
DX: T82.111A Breakdown (mechanical) of cardiac pulse generator (battery), initial encounter (principal); I42.0 Dilated cardiomyopathy; I11.0 Hypertensive heart disease with heart failure; I50.22 Chronic systolic (congestive) heart failure; Z20.822 Contact with and (suspected) exposure to COVID-19; F17.200 Nicotine dependence, unspecified, uncomplicated; Y83.1 Surgical operation with implant of artificial internal device as the cause of abnormal reaction of the patient, or of later complication, without mention of misadventure at the time of the procedure; E66.01 Morbid (severe) obesity due to excess calories; Z68.42 Body mass index [BMI] 45.0-49.9, adult; Z59.0 Homelessness; Z82.49 Family history of ischemic heart disease and other diseases of the circulatory system; Y92.89 Other specified places as the place of occurrence of the external cause; S40.822A Blister (nonthermal) of left upper arm, initial encounter; X58.XXXA Exposure to other specified factors, initial encounter; Y93.89 Activity, other specified; Y92.238 Other place in hospital as the place of occurrence of the external cause; Y99.8 Other external cause status; T82.120A Displacement of cardiac electrode, initial encounter
CPT/HCPCS: 33249; 36415; 71045; 75820; 80048; 80053; 80061; 82962; 83880; 84439; 84443; 84484; 85025; 87426; 93005; 93451; 93640; 94002; 99285; C1722; C1726; C1769; C1893; C1894; C1899; J0330; J0690; J1100; J1580; J1644; J1650; J1940; J2060; J2250; J2270; J2370; J2405; J2704; J2710; J2765; J3010; J3490; Q9967; A4315

== ENCOUNTER 2021-09-26 05:57 | Inpatient (IN) | payer MEDICAID ==
[~2021-09-26] VITALS: Ht 188 cm; Wt 169.6 kg
[2021-09-26] MEDS ORDERED: ONDANSETRON HCL 4MG/2ML INJ IV STA (07:06)
[2021-09-26] MEDS ORDERED: MORPHINE SULFATE 4 MG/ML CPJ (NOT FOR IM USE) IV STA (07:06)
[2021-09-26] MEDS ORDERED: MORPHINE SULFATE 2 MG/ML CPJ (NOT FOR IM USE) IV STA (07:55)
[2021-09-26 08:59] LABS: BASOPHILS % 0.9 % (0.0-2.0); EOSINOPHILS % 2.6 % (0.0-5.0); HEMATOCRIT. 45.1 % (42.0-52.0); HEMOGLOBIN. 15.1 g/dL (14.0-18.0); LYMPHOCYTES % 25.4 % (20.0-50.0); MEAN CORPUSCULAR HEMOGLOBIN 32.1 pg (28.0-32.0); MEAN CORPUSCULAR VOLUME 95.9 fL (80.0-94.0); MEAN PLATELET VOLUME 11.9 fl (7.4-10.4); MONOCYTES % 10.1 % (2.0-8.0); PLATELET 134 x1000/uL (130-400); RED CELL DISTRIBUTION WIDTH 14.6 % (11.6-14.6)
[2021-09-26 09:03] LABS: CHLORIDE 105 mEq/L (98-107)
[2021-09-26 09:04] LABS: INR 1.1; PROTHROMBIN TIME 11.7 sec (9.6-11.0)
[2021-09-26] MEDS ORDERED: KETOROLAC 15MG/ML VIAL IV ONE (11:00)
[2021-09-26] MEDS ORDERED: HYDRALAZINE 20MG/ML VIAL IV PRN (17:00)
[2021-09-26] MEDS ORDERED: ONDANSETRON HCL 4MG/2ML INJ IV PRN (17:00)
[2021-09-26] MEDS ORDERED: GUAIFENESIN 200MG/10ML SUGAR FREE UDC PO PRN (17:00)
[2021-09-26] MEDS ORDERED: ACETAMINOPHEN 325MG TABLET PO PRN (17:00)
[2021-09-26] MEDS ORDERED: LORAZEPAM 2MG/ML CPJ IV PRN (17:00)
[2021-09-26] MEDS ORDERED: CLONIDINE 0.1MG TABLET PO PRN (17:00)
[2021-09-26] MEDS ORDERED: IPRATROPIUM/ALBUTEROL 0.5-3(2.5)MG/3ML NEB HHN PRN (17:00)
[2021-09-26] MEDS ORDERED: DOCUSATE SODIUM 100MG CAPSULE PO PRN (17:00)
[2021-09-26] MEDS ORDERED: DIPHENHYDRAMINE 50MG/ML VIAL IV PRN (17:00)
[2021-09-26] MEDS ORDERED: MAGNESIUM/ALUMINUM HYDROXIDE/SIMETHICONE 30ML UDC PO PRN (17:00)
[2021-09-26] MEDS: MORPHINE SULFATE 2 MG/ML CPJ (NOT FOR IM USE) IV PRN (17:36)
[2021-09-26 19:49] LABS: CLARITY URINE CLEAR (CLEAR); COLOR URINE DARK YELLOW (YELLOW); KETONES URINE TRACE (NEGATIVE); LEUKOCYTE ESTERASE URINE 2+ (NEGATIVE); NITRITE URINE NEGATIVE (NEGATIVE); OCCULT BLOOD URINE NEGATIVE (NEGATIVE); PH URINE 5.5 (4.5-8.0); PROTEIN URINE TRACE (NEGATIVE); SPECIFIC GRAVITY URINE 1.021 (1.005-1.030)
[2021-09-26 20:06] LABS: *BENZODIAZEPINES SCREEN URINE NEGATIVE (NEGATIVE)
[2021-09-26 20:07] LABS: *BARBITURATES SCREEN URINE NEGATIVE (NEGATIVE); *COCAINE SCREEN URINE NEGATIVE (NEGATIVE); CANNABINOID URINE SCREEN NEGATIVE (NEGATIVE); METHADONE URINE SCREEN NEGATIVE (NEGATIVE); OPIATES URINE SCREEN PRESUMTIVE POSITIVE (NEGATIVE); PHENCYCLIDINE URINE SCREEN NEGATIVE (NEGATIVE)
[2021-09-26 20:08] LABS: *AMPHETAMINES SCREEN URINE NEGATIVE (NEGATIVE)
[2021-09-26] MEDS: ENOXAPARIN 40MG/0.4ML SYR SUBCUT SCH (21:22)
[2021-09-26] MEDS: SODIUM CHLORIDE 0.9% INJ 3ML FLUSH IVF SCH (22:28)
[2021-09-26] MEDS: HYDROCODONE/ACETAMINOPHEN 5/325MG TABLET PO PRN (22:29)
[2021-09-26 23:35] VITALS: BP 131/74
[2021-09-27] VITALS: BP 113/78
[2021-09-27 01:50] LABS: CREATINE KINASE 106 IU/L (39-308)
[2021-09-27 01:51] LABS: CREATINE KINASE MB FRACTION 1.1 ng/mL (0.5-3.6)
[2021-09-27] MEDS: MORPHINE SULFATE 2 MG/ML CPJ (NOT FOR IM USE) IV PRN ×3 (03:30→19:10)
[2021-09-27 04:00] VITALS: BP 126/60
[2021-09-27] MEDS: SODIUM CHLORIDE 0.9% INJ 3ML FLUSH IVF SCH ×3 (06:00→22:07)
[2021-09-27 08:00] VITALS: BP 122/85
[2021-09-27 08:45] LABS: EOSINOPHILS % 3.2 % (0.0-5.0); HEMATOCRIT. 42.8 % (42.0-52.0); HEMOGLOBIN. 14.4 g/dL (14.0-18.0); LYMPHOCYTES % 31.7 % (20.0-50.0); MEAN CORPUSCULAR HEMOGLOBIN 32.2 pg (28.0-32.0); MEAN CORPUSCULAR VOLUME 95.7 fL (80.0-94.0); MEAN PLATELET VOLUME 12.2 fl (7.4-10.4); NEUTROPHILS % 53.1 % (40.0-76.0); PLATELET 127 x1000/uL (130-400); RED BLOOD CELL COUNT 4.47 mill/uL (4.7-6.1); RED CELL DISTRIBUTION WIDTH 14.5 % (11.6-14.6)
[2021-09-27 08:51] LABS: CHLORIDE 105 mEq/L (98-107)
[2021-09-27 09:03] LABS: CREATINE KINASE 91 IU/L (39-308)
[2021-09-27 09:39] LABS: CREATINE KINASE MB FRACTION < 1.0 ng/mL (0.5-3.6)
[2021-09-27] MEDS: ENOXAPARIN 40MG/0.4ML SYR SUBCUT SCH ×2 (10:26→22:05)
[2021-09-27] MEDS ORDERED: NON FORMULARY PATIENT HOME MED XX SCH (10:45)
[2021-09-27 12:00] VITALS: BP 123/80
[2021-09-27] MEDS ORDERED: NALOXONE HCL 0.4MG/ML VIAL IV PRN (15:15)
[2021-09-27 16:00] VITALS: BP 119/86
[2021-09-27] MEDS: HYDROCODONE/ACETAMINOPHEN 5/325MG TABLET PO PRN (16:06)
[2021-09-27] MEDS: ASPIRIN 81MG TABLET PO SCH (16:13)
[2021-09-27] MEDS: CARVEDILOL 6.25 MG TABLET PO SCH ×2 (16:13→22:06)
[2021-09-27] MEDS: SPIRONOLACTONE 25MG TABLET PO SCH (16:14)
[2021-09-27] MEDS: SACUBITRIL/VALSARTAN 49MG/51MG TABLET PO SCH (19:10)
[2021-09-27 20:00] VITALS: BP 110/70
[2021-09-28] VITALS: BP 109/59
[2021-09-28] MEDS: MORPHINE SULFATE 2 MG/ML CPJ (NOT FOR IM USE) IV PRN ×2 (00:59→10:40)
[2021-09-28] MEDS: HYDROCODONE/ACETAMINOPHEN 5/325MG TABLET PO PRN (04:22)
[2021-09-28] MEDS: SODIUM CHLORIDE 0.9% INJ 3ML FLUSH IVF SCH (05:50)
[2021-09-28 08:00] VITALS: BP 115/74
[2021-09-28 08:14] LABS: EOSINOPHILS % 3.9 % (0.0-5.0); HEMATOCRIT. 44.6 % (42.0-52.0); HEMOGLOBIN. 14.9 g/dL (14.0-18.0); LYMPHOCYTES % 33.2 % (20.0-50.0); MEAN CORPUSCULAR HEMOGLOBIN 31.8 pg (28.0-32.0); MEAN CORPUSCULAR VOLUME 95.1 fL (80.0-94.0); MEAN PLATELET VOLUME 11.7 fl (7.4-10.4); MONOCYTES % 9.6 % (2.0-8.0); NEUTROPHILS % 52.3 % (40.0-76.0); PLATELET 130 x1000/uL (130-400); RED BLOOD CELL COUNT 4.69 mill/uL (4.7-6.1); RED CELL DISTRIBUTION WIDTH 14.1 % (11.6-14.6)
[2021-09-28 08:40] LABS: CHLORIDE 106 mEq/L (98-107)
[2021-09-28] MEDS: SACUBITRIL/VALSARTAN 49MG/51MG TABLET PO SCH (10:32)
[2021-09-28] MEDS: SPIRONOLACTONE 25MG TABLET PO SCH (10:33)
[2021-09-28] MEDS: ASPIRIN 81MG TABLET PO SCH (10:33)
[2021-09-28] MEDS: ENOXAPARIN 40MG/0.4ML SYR SUBCUT SCH (10:34)
[2021-09-28] MEDS: CARVEDILOL 6.25 MG TABLET PO SCH (10:34)
[2021-09-28 13:27] VITALS: BP 115/74
== END 2021-09-28 16:40 | disposition home or self-care (01) | DRG 347 ==
LOC: ER 05:57 → 8WST 13:48 → EDBEDREQ 13:50 → EDBEDREQTM 13:50 → ENRESERV 20:34
PROVIDERS: ADMIT Internal Medicine; ATTEND Internal Medicine
DX: M54.40 Lumbago with sciatica, unspecified side (principal); I42.0 Dilated cardiomyopathy; I50.9 Heart failure, unspecified; I11.0 Hypertensive heart disease with heart failure; F10.10 Alcohol abuse, uncomplicated; Y90.9 Presence of alcohol in blood, level not specified; K76.0 Fatty (change of) liver, not elsewhere classified; E78.5 Hyperlipidemia, unspecified; E66.01 Morbid (severe) obesity due to excess calories; G47.33 Obstructive sleep apnea (adult) (pediatric); E78.00 Pure hypercholesterolemia, unspecified; Z95.810 Presence of automatic (implantable) cardiac defibrillator; Z68.42 Body mass index [BMI] 45.0-49.9, adult; Z82.49 Family history of ischemic heart disease and other diseases of the circulatory system
CPT/HCPCS: 36415; 71045; 72100; 76770; 80048; 80053; 80305; 81003; 82550; 82553; 83735; 83880; 84443; 84484; 85025; 93005; 93970; 93971; 97162; 99285; J1650; J1885; J2270; J2405

== ENCOUNTER 2021-10-26 00:19 | Inpatient (IN) | payer MEDICAID ==
[~2021-10-26] VITALS: Ht 188 cm; Wt 163.1 kg
[2021-10-26] MEDS ORDERED: ASPIRIN 81MG TABLET PO ONE (01:00)
[2021-10-26] MEDS: NITROGLYCERIN 0.4MG TABLET SL SL PRN ×3 (01:04→11:46)
[2021-10-26 01:28] LABS: BASOPHILS % 0.7 % (0.0-2.0); EOSINOPHILS % 1.8 % (0.0-5.0); HEMATOCRIT. 44.8 % (42.0-52.0); HEMOGLOBIN. 15.1 g/dL (14.0-18.0); LYMPHOCYTES % 20.8 % (20.0-50.0); MEAN CORPUSCULAR HEMOGLOBIN 31.6 pg (28.0-32.0); MEAN CORPUSCULAR VOLUME 93.6 fL (80.0-94.0); MEAN PLATELET VOLUME 11.8 fl (7.4-10.4); MONOCYTES % 7.7 % (2.0-8.0); PLATELET 144 x1000/uL (130-400); RED BLOOD CELL COUNT 4.78 mill/uL (4.7-6.1); RED CELL DISTRIBUTION WIDTH 14.1 % (11.6-14.6)
[2021-10-26] MEDS ORDERED: ONDANSETRON HCL 4MG/2ML INJ IV STA (01:29)
[2021-10-26] MEDS ORDERED: MORPHINE SULFATE 4 MG/ML CPJ (NOT FOR IM USE) IV STA (01:29)
[2021-10-26 01:34] LABS: CHLORIDE 106 mEq/L (98-107)
[2021-10-26 02:41] LABS: INR 1.1; PARTIAL THROMBOPLASTIN TIME 27.3 sec (23.4-31.0); PROTHROMBIN TIME 11.9 sec (9.6-11.0)
[2021-10-26] MEDS ORDERED: MORPHINE SULFATE 4 MG/ML CPJ (NOT FOR IM USE) IV ONE (03:45)
[2021-10-26] MEDS ORDERED: CLONIDINE 0.1MG TABLET PO PRN (09:30)
[2021-10-26] MEDS ORDERED: ONDANSETRON HCL 4MG/2ML INJ IV PRN (09:30)
[2021-10-26] MEDS ORDERED: IPRATROPIUM/ALBUTEROL 0.5-3(2.5)MG/3ML NEB HHN PRN (09:30)
[2021-10-26] MEDS ORDERED: DIPHENHYDRAMINE 50MG/ML VIAL IV PRN (09:30)
[2021-10-26] MEDS ORDERED: NALOXONE HCL 0.4MG/ML VIAL IV PRN (09:30)
[2021-10-26] MEDS ORDERED: ACETAMINOPHEN 325MG TABLET PO PRN (09:30)
[2021-10-26] MEDS: MORPHINE SULFATE 2 MG/ML CPJ (NOT FOR IM USE) IV PRN ×3 (09:41→18:54)
[2021-10-26] MEDS ORDERED: OXYC-662 MT (10:44)
[2021-10-26] MEDS ORDERED: FURO20TA4 MT (10:44)
[2021-10-26] MEDS ORDERED: LORA-249 MT (10:44)
[2021-10-26 10:47] VITALS: BP 114/72
[2021-10-26] MEDS: FUROSEMIDE 40MG TABLET PO SCH (10:49)
[2021-10-26] MEDS: LOSARTAN POTASSIUM 25 MG TABLET PO SCH (10:49)
[2021-10-26] MEDS: ENOXAPARIN 40MG/0.4ML SYR SUBCUT SCH ×2 (10:55→20:54)
[2021-10-26 12:00] VITALS: BP 111/82
[2021-10-26 16:00] VITALS: BP 105/74
[2021-10-26 20:00] VITALS: BP 126/80
[2021-10-26] MEDS: ATORVASTATIN CALCIUM 20MG TABLET PO SCH (20:53)
[2021-10-26] MEDS: CARVEDILOL 3.125 MG TABLET PO SCH (20:54)
[2021-10-26] MEDS: CYCLOBENZAPRINE 10MG TABLET PO SCH (22:00)
[2021-10-27] VITALS (7 sets, daily range): BP systolic 104–133; BP diastolic 52–80
[2021-10-27] MEDS: MORPHINE SULFATE 2 MG/ML CPJ (NOT FOR IM USE) IV PRN ×4 (01:50→23:25)
[2021-10-27] MEDS: CYCLOBENZAPRINE 10MG TABLET PO SCH ×3 (05:25→21:34)
[2021-10-27 06:50] LABS: BASOPHILS % 0.9 % (0.0-2.0); EOSINOPHILS % 3.8 % (0.0-5.0); HEMATOCRIT. 42.3 % (42.0-52.0); HEMOGLOBIN. 14.2 g/dL (14.0-18.0); LYMPHOCYTES % 34.4 % (20.0-50.0); MEAN CORPUSCULAR HEMOGLOBIN 31.7 pg (28.0-32.0); MEAN CORPUSCULAR VOLUME 94.3 fL (80.0-94.0); MEAN PLATELET VOLUME 12.1 fl (7.4-10.4); MONOCYTES % 11.9 % (2.0-8.0); PLATELET 124 x1000/uL (130-400); RED BLOOD CELL COUNT 4.49 mill/uL (4.7-6.1); RED CELL DISTRIBUTION WIDTH 14.2 % (11.6-14.6)
[2021-10-27 06:57] LABS: CHLORIDE 104 mEq/L (98-107)
[2021-10-27] MEDS: LOSARTAN POTASSIUM 25 MG TABLET PO SCH (08:58)
[2021-10-27] MEDS: CARVEDILOL 3.125 MG TABLET PO SCH ×2 (08:58→21:33)
[2021-10-27] MEDS: FUROSEMIDE 40MG TABLET PO SCH (08:58)
[2021-10-27] MEDS: ENOXAPARIN 40MG/0.4ML SYR SUBCUT SCH ×2 (14:22→21:34)
[2021-10-27] MEDS: ATORVASTATIN CALCIUM 20MG TABLET PO SCH (21:34)
[2021-10-28 04:00] VITALS: BP 108/81
[2021-10-28] MEDS: MORPHINE SULFATE 2 MG/ML CPJ (NOT FOR IM USE) IV PRN ×3 (04:48→16:00)
[2021-10-28] MEDS: CYCLOBENZAPRINE 10MG TABLET PO SCH ×2 (06:20→13:00)
[2021-10-28 07:58] VITALS: BP 102/72
[2021-10-28] MEDS: LOSARTAN POTASSIUM 25 MG TABLET PO SCH (08:14)
[2021-10-28] MEDS: FUROSEMIDE 40MG TABLET PO SCH (08:14)
[2021-10-28] MEDS: CARVEDILOL 3.125 MG TABLET PO SCH (08:14)
[2021-10-28] MEDS: ENOXAPARIN 40MG/0.4ML SYR SUBCUT SCH (08:15)
[2021-10-28 12:00] VITALS: BP 100/67
[2021-10-28 14:17] VITALS: BP 100/67
[2021-10-28 16:00] VITALS: BP 114/72
== END 2021-10-28 19:55 | disposition home or self-care (01) | DRG 203 ==
LOC: ER 00:19 → 7EST 03:41 → ENRESERV 09:31
PROVIDERS: ADMIT Internal Medicine; ATTEND Internal Medicine
DX: M94.0 Chondrocostal junction syndrome [Tietze] (principal); I42.0 Dilated cardiomyopathy; I50.9 Heart failure, unspecified; I11.0 Hypertensive heart disease with heart failure; E78.5 Hyperlipidemia, unspecified; F10.10 Alcohol abuse, uncomplicated; G47.33 Obstructive sleep apnea (adult) (pediatric); Z20.822 Contact with and (suspected) exposure to COVID-19; E66.01 Morbid (severe) obesity due to excess calories; Z95.810 Presence of automatic (implantable) cardiac defibrillator; Z68.42 Body mass index [BMI] 45.0-49.9, adult
CPT/HCPCS: 36415; 71045; 71250; 80048; 80053; 82962; 83735; 83880; 84443; 84484; 85025; 87426; 93005; 93970; 99291; J1650; J2270; J2405

== ENCOUNTER 2022-03-05 11:39 | Inpatient (IN) | payer MEDICAID ==
[~2022-03-05] VITALS: Ht 190.5 cm; Wt 178.3 kg
[~2022-03-05 11:39] MED LIST changes: +FURO40TA5 MT
[2022-03-05] MEDS ORDERED: MORPHINE SULFATE 4 MG/ML CPJ (NOT FOR IM USE) IV STA (12:47)
[2022-03-05] MEDS ORDERED: ONDANSETRON HCL 4MG/2ML INJ IV STA (12:47)
[2022-03-05] MEDS ORDERED: FUROSEMIDE 40MG/4ML VIAL IV ONE (13:00)
[2022-03-05] MEDS ORDERED: NITROGLYCERIN OINT 1GM/INCH UDPKT TD ONE (13:00)
[2022-03-05] MEDS ORDERED: ASPIRIN 81MG TABLET PO ONE (13:00)
[2022-03-05 14:53] LABS: BASOPHILS % 0.6 % (0.0-2.0); EOSINOPHILS % 1.4 % (0.0-5.0); HEMATOCRIT. 42.5 % (42.0-52.0); LYMPHOCYTES % 27.5 % (20.0-50.0); MEAN CORPUSCULAR HEMOGLOBIN 31.8 pg (28.0-32.0); MEAN CORPUSCULAR VOLUME 96.6 fL (80.0-94.0); MEAN PLATELET VOLUME 11.5 fl (7.4-10.4); MONOCYTES % 12.7 % (2.0-8.0); NEUTROPHILS % 57.8 % (40.0-76.0); PLATELET 102 x1000/uL (130-400)
[2022-03-05 14:59] LABS: CHLORIDE 111 mEq/L (98-107)
[2022-03-05] MEDS ORDERED: IPRATROPIUM/ALBUTEROL 0.5-3(2.5)MG/3ML NEB NEB PRN (16:15)
[2022-03-05] MEDS ORDERED: MAGNESIUM/ALUMINUM HYDROXIDE/SIMETHICONE 30ML UDC PO PRN (16:15)
[2022-03-05] MEDS ORDERED: ONDANSETRON HCL 4MG/2ML INJ IV PRN (16:15)
[2022-03-05] MEDS ORDERED: KETOROLAC 15MG/ML VIAL IV PRN (16:15)
[2022-03-05] MEDS ORDERED: GUAIFENESIN 200MG/10ML SUGAR FREE UDC PO PRN (16:15)
[2022-03-05] MEDS ORDERED: ACETAMINOPHEN 325MG TABLET PO PRN (16:15)
[2022-03-05] MEDS ORDERED: NITROGLYCERIN 0.4MG TABLET SL SL PRN (16:15)
[2022-03-05] MEDS ORDERED: DOCUSATE SODIUM 100MG CAPSULE PO PRN (16:15)
[2022-03-05] MEDS ORDERED: CLONIDINE 0.1MG TABLET PO PRN (16:15)
[2022-03-05 16:38] LABS: ETHANOL BLOOD < 10 mg/dL
[2022-03-05 16:39] LABS: TOTAL IRON BINDING CAPACITY 401 ug/dL (250-450)
[2022-03-05 16:40] LABS: D-DIMER 2.5 mg/L FEU (<0.50); INR 1.1; LDL CHOLESTEROL 117 mg/dL (5-100); PARTIAL THROMBOPLASTIN TIME 27.4 sec (23.4-31.0)
[2022-03-05 16:42] LABS: HDL CHOLESTEROL 29 mg/dL (40-59)
[2022-03-05 17:10] LABS: FOLIC ACID (FOLATE) SERUM 11.5 ng/mL (>5.38)
[2022-03-05] MEDS: ENOXAPARIN 40MG/0.4ML SYR SUBCUT SCH (17:33)
[2022-03-05] MEDS: CARVEDILOL 3.125 MG TABLET PO SCH (17:33)
[2022-03-05] MEDS: KETOROLAC 15MG/ML VIAL IV PRN (17:34)
[2022-03-05 17:46] LABS: *AMPHETAMINES SCREEN URINE NEGATIVE (NEGATIVE); *BARBITURATES SCREEN URINE NEGATIVE (NEGATIVE); *BENZODIAZEPINES SCREEN URINE NEGATIVE (NEGATIVE); *COCAINE SCREEN URINE NEGATIVE (NEGATIVE)
[2022-03-05 17:47] LABS: CANNABINOID URINE SCREEN NEGATIVE (NEGATIVE); METHADONE URINE SCREEN NEGATIVE (NEGATIVE); OPIATES URINE SCREEN PRESUMTIVE POSITIVE (NEGATIVE); PHENCYCLIDINE URINE SCREEN NEGATIVE (NEGATIVE)
[2022-03-05] MEDS ORDERED: IOHEXOL-350 100 ML BOTTLE ONE (20:07)
[2022-03-05] MEDS ORDERED: ZOLPIDEM TARTRATE 5MG TABLET PO PRN (21:00)
[2022-03-05 23:00] VITALS: BP 117/84
[2022-03-05] MEDS: FAMOTIDINE 20MG TABLET PO SCH (23:22)
[2022-03-05] MEDS: SPIRONOLACTONE 25MG TABLET PO SCH (23:23)
[2022-03-05] MEDS: FUROSEMIDE 40MG/4ML VIAL IVP SCH (23:23)
[2022-03-06] VITALS: BP 126/78
[2022-03-06] MEDS ORDERED: NAPR220T66 PO (02:08)
[2022-03-06 04:00] VITALS: BP 132/88
[2022-03-06] MEDS: ENOXAPARIN 40MG/0.4ML SYR SUBCUT SCH ×2 (06:34→16:48)
[2022-03-06] MEDS: CARVEDILOL 3.125 MG TABLET PO SCH ×2 (06:34→16:48)
[2022-03-06 06:42] LABS: HEMATOCRIT. 41.3 % (42.0-52.0); HEMOGLOBIN. 13.8 g/dL (14.0-18.0); LYMPHOCYTES % 28.2 % (20.0-50.0); MEAN CORPUSCULAR HEMOGLOBIN 31.9 pg (28.0-32.0); MEAN CORPUSCULAR VOLUME 95.9 fL (80.0-94.0); MEAN PLATELET VOLUME 10.9 fl (7.4-10.4); MONOCYTES % 12.2 % (2.0-8.0); NEUTROPHILS % 56.6 % (40.0-76.0); PLATELET 100 x1000/uL (130-400); RED BLOOD CELL COUNT 4.31 mill/uL (4.7-6.1); RED CELL DISTRIBUTION WIDTH 14.9 % (11.6-14.6)
[2022-03-06 07:05] LABS: CHLORIDE 108 mEq/L (98-107)
[2022-03-06 07:10] LABS: PHOSPHORUS 5.2 mg/dL (2.5-4.9)
[2022-03-06 07:35] LABS: CREATINE KINASE MB FRACTION 2.5 ng/mL (0.5-3.6)
[2022-03-06 08:19] VITALS: BP 118/88
[2022-03-06] MEDS: FAMOTIDINE 20MG TABLET PO SCH ×2 (08:20→22:08)
[2022-03-06] MEDS: ASPIRIN 325MG EC TABLET PO SCH (08:21)
[2022-03-06] MEDS: SPIRONOLACTONE 25MG TABLET PO SCH ×2 (08:21→22:05)
[2022-03-06] MEDS: KETOROLAC 15MG/ML VIAL IV PRN (08:24)
[2022-03-06] MEDS: FUROSEMIDE 40MG/4ML VIAL IVP SCH ×2 (08:51→22:05)
[2022-03-06 11:53] VITALS: BP 114/84
[2022-03-06] MEDS: ACETAMINOPHEN 325MG TABLET PO PRN (14:03)
[2022-03-06 16:19] VITALS: BP 128/68
[2022-03-06 20:00] VITALS: BP 113/88
[2022-03-07] VITALS: BP 134/73
[2022-03-07 04:00] VITALS: BP 126/75
[2022-03-07] MEDS: CARVEDILOL 3.125 MG TABLET PO SCH ×2 (05:35→18:12)
[2022-03-07] MEDS: ENOXAPARIN 40MG/0.4ML SYR SUBCUT SCH ×2 (05:35→18:12)
[2022-03-07] MEDS: KETOROLAC 15MG/ML VIAL IV PRN ×2 (05:36→13:03)
[2022-03-07 07:51] VITALS: BP 118/82
[2022-03-07] MEDS: FAMOTIDINE 20MG TABLET PO SCH ×2 (08:55→21:25)
[2022-03-07] MEDS: SPIRONOLACTONE 25MG TABLET PO SCH ×2 (08:55→21:24)
[2022-03-07] MEDS: FUROSEMIDE 40MG/4ML VIAL IVP SCH ×2 (08:55→21:24)
[2022-03-07] MEDS: ASPIRIN 325MG EC TABLET PO SCH (08:55)
[2022-03-07 12:12] VITALS: BP 114/64
[2022-03-07 16:15] VITALS: BP 118/74
[2022-03-07 20:00] VITALS: BP 117/57
[2022-03-07] MEDS: ACETAMINOPHEN 325MG TABLET PO PRN (21:34)
[2022-03-08] VITALS: BP 129/82
[2022-03-08 04:00] VITALS: BP 125/89
[2022-03-08] MEDS: CARVEDILOL 3.125 MG TABLET PO SCH ×2 (07:55→21:25)
[2022-03-08] MEDS: ENOXAPARIN 40MG/0.4ML SYR SUBCUT SCH ×2 (07:59→17:07)
[2022-03-08 08:00] VITALS: BP 118/75
[2022-03-08] MEDS: FAMOTIDINE 20MG TABLET PO SCH ×2 (09:44→21:24)
[2022-03-08] MEDS: FUROSEMIDE 40MG/4ML VIAL IVP SCH ×2 (09:44→21:25)
[2022-03-08] MEDS: ASPIRIN 325MG EC TABLET PO SCH (09:45)
[2022-03-08] MEDS: SPIRONOLACTONE 25MG TABLET PO SCH ×2 (09:45→21:24)
[2022-03-08] MEDS: KETOROLAC 15MG/ML VIAL IV PRN (11:43)
[2022-03-08 12:00] VITALS: BP 128/75
[2022-03-08 16:00] VITALS: BP 122/81
[2022-03-08 20:00] VITALS: BP 136/82
[2022-03-09] VITALS: BP 132/82
[2022-03-09 04:00] VITALS: BP 133/80
[2022-03-09] MEDS: CARVEDILOL 3.125 MG TABLET PO SCH ×2 (06:00→06:01)
[2022-03-09] MEDS: ENOXAPARIN 40MG/0.4ML SYR SUBCUT SCH (06:01)
[2022-03-09 08:00] VITALS: BP 127/82
[2022-03-09] MEDS: FAMOTIDINE 20MG TABLET PO SCH (08:42)
[2022-03-09] MEDS: FUROSEMIDE 40MG/4ML VIAL IVP SCH (08:42)
[2022-03-09] MEDS: ASPIRIN 325MG EC TABLET PO SCH (08:43)
[2022-03-09] MEDS: SPIRONOLACTONE 25MG TABLET PO SCH (08:43)
[2022-03-09] MEDS ORDERED: ATOR40TA70 MT (10:31)
[2022-03-09] MEDS ORDERED: FURO40TA5 MT (10:31)
[2022-03-09] MEDS ORDERED: SACU1TAB PO (10:31)
[2022-03-09] MEDS ORDERED: COR6 PO (10:31)
[2022-03-09] MEDS ORDERED: ASPI-1406 PO (10:31)
[2022-03-09] MEDS ORDERED: SPIR25TA MT (10:31)
[2022-03-09 10:51] VITALS: BP 127/82
[2022-03-09 12:00] VITALS: BP 125/80
== END 2022-03-09 12:25 | disposition home or self-care (01) | DRG 194 ==
LOC: ER 11:39 → 6WST 16:02 → ENRESERV 21:50
PROVIDERS: ADMIT Internal Medicine; ATTEND Internal Medicine
DX: I11.0 Hypertensive heart disease with heart failure (principal); J96.00 Acute respiratory failure, unspecified whether with hypoxia or hypercapnia; E44.1 Mild protein-calorie malnutrition; I50.43 Acute on chronic combined systolic (congestive) and diastolic (congestive) heart failure; E78.00 Pure hypercholesterolemia, unspecified; R74.01 Elevation of levels of liver transaminase levels; I42.9 Cardiomyopathy, unspecified; E66.9 Obesity, unspecified; Z68.42 Body mass index [BMI] 45.0-49.9, adult; Z79.84 Long term (current) use of oral hypoglycemic drugs; Z79.82 Long term (current) use of aspirin; Z79.899 Other long term (current) drug therapy; Z95.810 Presence of automatic (implantable) cardiac defibrillator
CPT/HCPCS: 36415; 71045; 71275; 73630; 80053; 80061; 80305; 80320; 82550; 82553; 82607; 82746; 83540; 83550; 83735; 83880; 84100; 84484; 85025; 85379; 93005; 93970; 99285; J1650; J1885; J1940; J2270; J2405; Q9967; G0480

== ENCOUNTER 2022-03-14 06:23 | Inpatient (IN) | payer MEDICAID ==
[~2022-03-14] VITALS: Ht 190.5 cm; Wt 172.8 kg
[~2022-03-14 06:23] MED LIST changes: -COLC0.6C3 MT; -POTA20TA82 PO; +SPIR25TA MT; -[UNRECOGNIZED DRUG - CODE] PO
[2022-03-14 07:46] LABS: CHLORIDE 108 mEq/L (98-107)
[2022-03-14 07:48] LABS: BASOPHILS % 0.7 % (0.0-2.0); EOSINOPHILS % 1.3 % (0.0-5.0); HEMATOCRIT. 42.2 % (42.0-52.0); HEMOGLOBIN. 13.9 g/dL (14.0-18.0); LYMPHOCYTES % 16.9 % (20.0-50.0); MEAN CORPUSCULAR HEMOGLOBIN 31.4 pg (28.0-32.0); MEAN CORPUSCULAR VOLUME 95.1 fL (80.0-94.0); MEAN PLATELET VOLUME 12.6 fl (7.4-10.4); NEUTROPHILS % 73.1 % (40.0-76.0); PLATELET 94 x1000/uL (130-400); RED BLOOD CELL COUNT 4.44 mill/uL (4.7-6.1)
[2022-03-14] MEDS ORDERED: FUROSEMIDE 40MG/4ML VIAL IVP ONE (08:45)
[2022-03-14] MEDS ORDERED: MORPHINE SULFATE 4 MG/ML CPJ (NOT FOR IM USE) IV ONE (08:45)
[2022-03-14] MEDS ORDERED: ENALAPRIL 2.5MG/2ML VIAL 2ML IV ONE (08:45)
[2022-03-14] MEDS ORDERED: ENALAPRIL 1.25MG/ML VIAL 1ML IV NR (09:00)
[2022-03-14] MEDS ORDERED: ONDANSETRON HCL 4MG/2ML INJ IV PRN (17:00)
[2022-03-14] MEDS: FUROSEMIDE 100MG/10ML VIAL IVP SCH (17:43)
[2022-03-14 22:00] VITALS: BP_SYST 128; BP_SYST 143; BP_DIAS 79; BP_DIAS 82
[2022-03-14] MEDS: CARVEDILOL 6.25 MG TABLET PO SCH (22:45)
[2022-03-15] VITALS (11 sets, daily range): BP systolic 90–147; BP diastolic 54–104
[2022-03-15] MEDS: ACETAMINOPHEN 325MG TABLET PO PRN ×3 (02:05→21:54)
[2022-03-15] MEDS: FUROSEMIDE 100MG/10ML VIAL IVP SCH ×2 (06:49→18:03)
[2022-03-15] MEDS: CARVEDILOL 6.25 MG TABLET PO SCH ×2 (08:07→21:53)
[2022-03-15] MEDS: LOSARTAN POTASSIUM 25 MG TABLET PO SCH (08:34)
[2022-03-15] MEDS ORDERED: IPRATROPIUM/ALBUTEROL 0.5-3(2.5)MG/3ML NEB HHN PRN (11:30)
[2022-03-16] VITALS (7 sets, daily range): BP systolic 81–136; BP diastolic 59–90
[2022-03-16] MEDS: LOSARTAN POTASSIUM 25 MG TABLET PO SCH (08:08)
[2022-03-16] MEDS: FUROSEMIDE 100MG/10ML VIAL IVP SCH ×2 (08:08→16:44)
[2022-03-16] MEDS: CARVEDILOL 6.25 MG TABLET PO SCH ×2 (08:08→22:01)
[2022-03-16] MEDS: TRAMADOL 50MG TABLET PO PRN ×2 (08:46→16:44)
[2022-03-16] MEDS: COLCHICINE 0.6MG TABLET PO SCH ×2 (11:11→22:01)
[2022-03-17 08:00] VITALS: BP 112/68
[2022-03-17] MEDS: FUROSEMIDE 100MG/10ML VIAL IVP SCH (08:32)
[2022-03-17] MEDS: LOSARTAN POTASSIUM 25 MG TABLET PO SCH (08:32)
[2022-03-17] MEDS: CARVEDILOL 6.25 MG TABLET PO SCH (08:32)
[2022-03-17] MEDS: COLCHICINE 0.6MG TABLET PO SCH (08:32)
[2022-03-17] MEDS ORDERED: COLC0.6C3 MT (11:03)
[2022-03-17 11:16] VITALS: BP 112/68
[2022-03-17 12:00] VITALS: BP 118/59
== END 2022-03-17 15:20 | disposition home or self-care (01) | DRG 194 ==
LOC: ER 06:29 → 5EST 11:45 → ENRESERV 18:49
PROVIDERS: ADMIT Internal Medicine; ATTEND Internal Medicine
PROC: 5A09457 Assistance with Respiratory Ventilation, 24-96 Consecutive Hours, Continuous Positive Airway Pressure (ICD-10-PCS; principal; 2022-03-14)
DX: I11.0 Hypertensive heart disease with heart failure (principal); J96.01 Acute respiratory failure with hypoxia; E44.1 Mild protein-calorie malnutrition; I50.43 Acute on chronic combined systolic (congestive) and diastolic (congestive) heart failure; D69.6 Thrombocytopenia, unspecified; I42.9 Cardiomyopathy, unspecified; M10.9 Gout, unspecified; E87.8 Other disorders of electrolyte and fluid balance, not elsewhere classified; R74.01 Elevation of levels of liver transaminase levels; E78.5 Hyperlipidemia, unspecified; G47.33 Obstructive sleep apnea (adult) (pediatric); K76.0 Fatty (change of) liver, not elsewhere classified; F10.10 Alcohol abuse, uncomplicated; E66.9 Obesity, unspecified; Z68.42 Body mass index [BMI] 45.0-49.9, adult; Z79.82 Long term (current) use of aspirin; Z79.899 Other long term (current) drug therapy; Z71.3 Dietary counseling and surveillance; Z95.810 Presence of automatic (implantable) cardiac defibrillator; Z82.49 Family history of ischemic heart disease and other diseases of the circulatory system
CPT/HCPCS: 36415; 71045; 80053; 82962; 83880; 84484; 84550; 85025; 93005; 94660; 99291; J1940; J2270; J2405; J3490

== ENCOUNTER 2022-04-20 06:55 | Inpatient (IN) | payer MEDICAID ==
[~2022-04-20] VITALS: Ht 190.5 cm; Wt 169.6 kg
[~2022-04-20 06:55] MED LIST changes: +COLC0.6C3 MT
[2022-04-20 10:19] LABS: EOSINOPHILS % 1.5 % (0.0-5.0); HEMATOCRIT. 46.5 % (42.0-52.0); HEMOGLOBIN. 15.2 g/dL (14.0-18.0); LYMPHOCYTES % 35.7 % (20.0-50.0); MEAN CORPUSCULAR HEMOGLOBIN 30.4 pg (28.0-32.0); MEAN CORPUSCULAR VOLUME 92.7 fL (80.0-94.0); MEAN PLATELET VOLUME 11.3 fl (7.4-10.4); MONOCYTES % 8.4 % (2.0-8.0); NEUTROPHILS % 53.4 % (40.0-76.0); PLATELET 101 x1000/uL (130-400); RED BLOOD CELL COUNT 5.01 mill/uL (4.7-6.1); RED CELL DISTRIBUTION WIDTH 15.4 % (11.6-14.6)
[2022-04-20 10:33] LABS: CHLORIDE 107 mEq/L (98-107)
[2022-04-20] MEDS ORDERED: NITROGLYCERIN 0.4MG TABLET SL SL PRN (13:30)
[2022-04-20] MEDS ORDERED: ASPIRIN 81MG TABLET PO ONE (13:30)
[2022-04-20] MEDS ORDERED: FUROSEMIDE 40MG/4ML VIAL IVP ONE (14:30)
[2022-04-20] MEDS ORDERED: NALOXONE HCL 0.4MG/ML VIAL IV PRN (19:15)
[2022-04-20] MEDS: MORPHINE SULFATE 2 MG/ML CPJ (NOT FOR IM USE) IV PRN (19:18)
[2022-04-20 20:00] VITALS: BP_SYST 122; BP_SYST 130; BP_DIAS 78; BP_DIAS 88
[2022-04-20] MEDS ORDERED: ACETAMINOPHEN 325MG TABLET PO PRN (20:15)
[2022-04-20] MEDS ORDERED: ONDANSETRON HCL 4MG/2ML INJ IV PRN (20:15)
[2022-04-20] MEDS ORDERED: CLONIDINE 0.1MG TABLET PO PRN (20:15)
[2022-04-20] MEDS: ASPIRIN 81MG EC TABLET PO SCH (22:04)
[2022-04-20] MEDS: ATORVASTATIN CALCIUM 40MG TABLET PO SCH (22:04)
[2022-04-20] MEDS: CARVEDILOL 3.125 MG TABLET PO SCH (22:05)
[2022-04-20] MEDS: ENOXAPARIN 30MG/0.3ML SYR SUBCUT SCH (22:05)
[2022-04-21] VITALS: BP 148/88
[2022-04-21 02:03] LABS: CREATINE KINASE MB FRACTION 1.5 ng/mL (0.5-3.6)
[2022-04-21 04:00] VITALS: BP 111/60
[2022-04-21 06:06] LABS: CREATINE KINASE MB FRACTION 1.3 ng/mL (0.5-3.6)
[2022-04-21] MEDS: MORPHINE SULFATE 2 MG/ML CPJ (NOT FOR IM USE) IV PRN ×3 (07:01→17:25)
[2022-04-21 08:00] VITALS: BP 105/57
[2022-04-21] MEDS: CARVEDILOL 3.125 MG TABLET PO SCH ×2 (09:00→21:55)
[2022-04-21] MEDS: ENOXAPARIN 30MG/0.3ML SYR SUBCUT SCH ×2 (09:01→21:55)
[2022-04-21] MEDS: ASPIRIN 81MG EC TABLET PO SCH (09:01)
[2022-04-21] MEDS: ATORVASTATIN CALCIUM 40MG TABLET PO SCH (09:01)
[2022-04-21 12:00] VITALS: BP 113/79
[2022-04-21 15:38] VITALS: BP 117/66
[2022-04-21] MEDS: FUROSEMIDE 40MG/4ML VIAL IVP SCH (18:00)
[2022-04-21 20:00] VITALS: BP 110/74
[2022-04-22] VITALS: BP 114/66
[2022-04-22] MEDS: MORPHINE SULFATE 2 MG/ML CPJ (NOT FOR IM USE) IV PRN ×2 (00:40→05:17)
[2022-04-22 04:00] VITALS: BP 116/70
[2022-04-22] MEDS: FUROSEMIDE 40MG/4ML VIAL IVP SCH (05:11)
[2022-04-22 06:13] LABS: BASOPHILS % 0.8 % (0.0-2.0); EOSINOPHILS % 2.5 % (0.0-5.0); HEMATOCRIT. 45.6 % (42.0-52.0); HEMOGLOBIN. 15.2 g/dL (14.0-18.0); MEAN CORPUSCULAR HEMOGLOBIN 30.7 pg (28.0-32.0); MEAN CORPUSCULAR VOLUME 91.9 fL (80.0-94.0); MEAN PLATELET VOLUME 11.3 fl (7.4-10.4); MONOCYTES % 12.7 % (2.0-8.0); PLATELET 99 x1000/uL (130-400); RED BLOOD CELL COUNT 4.96 mill/uL (4.7-6.1); RED CELL DISTRIBUTION WIDTH 15.5 % (11.6-14.6)
[2022-04-22 08:00] VITALS: BP 109/74
[2022-04-22 08:04] LABS: CHLORIDE 108 mEq/L (98-107)
[2022-04-22] MEDS: CARVEDILOL 3.125 MG TABLET PO SCH (08:31)
[2022-04-22] MEDS: ENOXAPARIN 30MG/0.3ML SYR SUBCUT SCH (08:32)
[2022-04-22] MEDS: ASPIRIN 81MG EC TABLET PO SCH (08:32)
[2022-04-22] MEDS: ATORVASTATIN CALCIUM 40MG TABLET PO SCH (08:32)
[2022-04-22 12:00] VITALS: BP 116/89
[2022-04-22 13:40] VITALS: BP 117/91
[2022-04-22] MEDS ORDERED: ENOXAPARIN 40MG/0.4ML SYR SUBCUT SCH (21:00)
== END 2022-04-22 14:08 | disposition home or self-care (01) | DRG 194 ==
LOC: ER 07:24 → 7WST 14:21 → ENRESERV 16:13
PROVIDERS: ADMIT Internal Medicine; ATTEND Internal Medicine
DX: I11.0 Hypertensive heart disease with heart failure (principal); I27.20 Pulmonary hypertension, unspecified; I47.2 Ventricular tachycardia; I42.0 Dilated cardiomyopathy; I50.43 Acute on chronic combined systolic (congestive) and diastolic (congestive) heart failure; I20.0 Unstable angina; E78.5 Hyperlipidemia, unspecified; E66.01 Morbid (severe) obesity due to excess calories; Z68.42 Body mass index [BMI] 45.0-49.9, adult; Z95.810 Presence of automatic (implantable) cardiac defibrillator; R79.89 Other specified abnormal findings of blood chemistry
CPT/HCPCS: 36415; 71045; 80048; 80053; 82550; 82553; 83735; 83880; 84443; 84484; 85025; 85379; 93005; 93306; 93970; 99285; J1650; J1940; J2270

== ENCOUNTER 2022-05-14 20:47 | Inpatient (IN) | payer MEDICAID ==
[~2022-05-14] VITALS: Ht 190.5 cm; Wt 176.9 kg
[2022-05-14] MEDS ORDERED: ONDANSETRON HCL 4MG/2ML INJ IV STA (22:29)
[2022-05-14] MEDS ORDERED: MORPHINE SULFATE 4 MG/ML CPJ (NOT FOR IM USE) IV STA (22:29)
[2022-05-14] MEDS ORDERED: ASPIRIN 81MG TABLET PO ONE (22:30)
[2022-05-14 23:09] LABS: BASOPHILS % 0.5 % (0.0-2.0); EOSINOPHILS % 0.9 % (0.0-5.0); HEMATOCRIT. 42.6 % (42.0-52.0); HEMOGLOBIN. 13.9 g/dL (14.0-18.0); LYMPHOCYTES % 14.8 % (20.0-50.0); MEAN CORPUSCULAR HEMOGLOBIN 30.5 pg (28.0-32.0); MEAN CORPUSCULAR VOLUME 93.2 fL (80.0-94.0); MEAN PLATELET VOLUME 11.3 fl (7.4-10.4); MONOCYTES % 9.3 % (2.0-8.0); NEUTROPHILS % 74.5 % (40.0-76.0); PLATELET 92 x1000/uL (130-400); RED BLOOD CELL COUNT 4.57 mill/uL (4.7-6.1); RED CELL DISTRIBUTION WIDTH 16.2 % (11.6-14.6)
[2022-05-14 23:13] LABS: CHLORIDE 105 mEq/L (98-107)
[2022-05-14 23:16] LABS: D-DIMER 0.8 mg/L FEU (<0.50); INR 1.2; PROTHROMBIN TIME 12.9 sec (9.6-11.0)
[2022-05-14 23:23] LABS: ETHANOL BLOOD < 10 mg/dL
[2022-05-14] MEDS ORDERED: FUROSEMIDE 40MG/4ML VIAL IVP NR (23:45)
[2022-05-15] MEDS ORDERED: IOHEXOL-350 100 ML BOTTLE ONE (00:33)
[2022-05-15 02:59] LABS: *AMPHETAMINES SCREEN URINE NEGATIVE (NEGATIVE); *BARBITURATES SCREEN URINE NEGATIVE (NEGATIVE); *BENZODIAZEPINES SCREEN URINE NEGATIVE (NEGATIVE); *COCAINE SCREEN URINE NEGATIVE (NEGATIVE); CANNABINOID URINE SCREEN NEGATIVE (NEGATIVE); METHADONE URINE SCREEN NEGATIVE (NEGATIVE); OPIATES URINE SCREEN PRESUMTIVE POSITIVE (NEGATIVE); PHENCYCLIDINE URINE SCREEN NEGATIVE (NEGATIVE)
[2022-05-15] MEDS ORDERED: NALOXONE HCL 0.4MG/ML VIAL IV PRN (08:00)
[2022-05-15] MEDS: HYDROCODONE/ACETAMINOPHEN 10/325MG TABLET PO PRN ×3 (08:00→20:01)
[2022-05-15] MEDS ORDERED: ACETAMINOPHEN 325MG TABLET PO PRN (09:30)
[2022-05-15] MEDS ORDERED: ONDANSETRON HCL 4MG/2ML INJ IV PRN (09:30)
[2022-05-15 10:10] VITALS: BP 116/53
[2022-05-15] MEDS: COLCHICINE 0.6MG TABLET PO SCH ×2 (10:23→20:06)
[2022-05-15 10:29] VITALS: BP 116/55
[2022-05-15] MEDS: FUROSEMIDE 100MG/10ML VIAL IVP SCH ×2 (11:25→17:01)
[2022-05-15 12:00] VITALS: BP 116/69
[2022-05-15 16:00] VITALS: BP 113/77
[2022-05-15 20:00] VITALS: BP 129/61
[2022-05-15] MEDS ORDERED: MORPHINE SULFATE 2 MG/ML CPJ (NOT FOR IM USE) IV NR (21:45)
[2022-05-16] VITALS: BP 125/81
[2022-05-16 04:00] VITALS: BP 118/72
[2022-05-16] MEDS: FUROSEMIDE 100MG/10ML VIAL IVP SCH ×2 (06:27→17:50)
[2022-05-16 08:00] VITALS: BP 115/73
[2022-05-16] MEDS: COLCHICINE 0.6MG TABLET PO SCH ×2 (09:03→20:58)
[2022-05-16] MEDS: HYDROCODONE/ACETAMINOPHEN 10/325MG TABLET PO PRN ×3 (10:18→21:01)
[2022-05-16 12:00] VITALS: BP 106/84
[2022-05-16] MEDS ORDERED: METOLAZONE 2.5MG TABLET PO NR (12:30)
[2022-05-16 16:00] VITALS: BP 121/86
[2022-05-16] MEDS ORDERED: FURO40TA5 MT (16:58)
[2022-05-17 04:00] VITALS: BP 135/82
[2022-05-17] MEDS: HYDROCODONE/ACETAMINOPHEN 10/325MG TABLET PO PRN ×2 (05:46→12:03)
[2022-05-17] MEDS: FUROSEMIDE 100MG/10ML VIAL IVP SCH (07:15)
[2022-05-17 08:00] VITALS: BP 152/75
[2022-05-17] MEDS: COLCHICINE 0.6MG TABLET PO SCH (08:12)
[2022-05-17 12:00] VITALS: BP 122/79
[2022-05-17 13:33] VITALS: BP 122/79
== END 2022-05-17 14:00 | disposition home or self-care (01) | DRG 194 ==
LOC: ER 20:47 → 7WST 05-15 02:02 → ENRESERV 05-15 08:29
PROVIDERS: ADMIT Internal Medicine; ATTEND Internal Medicine
DX: I11.0 Hypertensive heart disease with heart failure (principal); I42.9 Cardiomyopathy, unspecified; E88.09 Other disorders of plasma-protein metabolism, not elsewhere classified; E78.5 Hyperlipidemia, unspecified; I50.23 Acute on chronic systolic (congestive) heart failure; E66.9 Obesity, unspecified; I25.10 Atherosclerotic heart disease of native coronary artery without angina pectoris; M10.9 Gout, unspecified; Z68.42 Body mass index [BMI] 45.0-49.9, adult; Z71.3 Dietary counseling and surveillance; Z95.810 Presence of automatic (implantable) cardiac defibrillator
CPT/HCPCS: 36415; 71045; 71275; 73030; 80053; 80305; 80320; 83605; 83880; 84484; 85025; 85379; 93005; 97162; 99285; J1940; J2270; J2405; Q9967; G0480

== ENCOUNTER 2022-10-17 20:51 | Inpatient (IN) | payer MEDICAID ==
[~2022-10-17] VITALS: Ht 190.5 cm; Wt 171.0 kg
[2022-10-17 22:29] LABS: BASOPHILS % 0.5 % (0.0-2.0); CHLORIDE 101 mEq/L (98-107); EOSINOPHILS % 3.8 % (0.0-5.0); HEMATOCRIT. 41.4 % (42.0-52.0); HEMOGLOBIN. 14.3 g/dL (14.0-18.0); LYMPHOCYTES % 22.7 % (20.0-50.0); MEAN CORPUSCULAR HEMOGLOBIN 33.1 pg (28.0-32.0); MEAN PLATELET VOLUME 10.9 fl (7.4-10.4); MONOCYTES % 11.5 % (2.0-8.0); NEUTROPHILS % 61.5 % (40.0-76.0); PLATELET 119 x1000/uL (130-400); RED BLOOD CELL COUNT 4.31 mill/uL (4.7-6.1); RED CELL DISTRIBUTION WIDTH 13.5 % (11.6-14.6)
[2022-10-18] VITALS (8 sets, daily range): BP systolic 94–127; BP diastolic 39–71
[2022-10-18] MEDS ORDERED: HYDROCODONE/ACETAMINOPHEN 5/325MG TABLET PO ONE (00:30)
[2022-10-18] MEDS ORDERED: HYDR-4009 MT (03:59)
[2022-10-18] MEDS ORDERED: BUME2TAB7 MT (03:59)
[2022-10-18] MEDS ORDERED: VALS80TA30 PO (03:59)
[2022-10-18] MEDS: HYDROCODONE/ACETAMINOPHEN 10/325MG TABLET PO PRN ×2 (05:33→09:50)
[2022-10-18] MEDS ORDERED: *PATIENT'S OWN MEDICATION STORAGE XX SCH (06:15)
[2022-10-18] MEDS: ATORVASTATIN CALCIUM 40MG TABLET PO SCH (09:48)
[2022-10-18] MEDS: ASPIRIN 81MG EC TABLET PO SCH (09:48)
[2022-10-18] MEDS: SPIRONOLACTONE 25MG TABLET PO SCH (09:50)
[2022-10-18] MEDS: FAMOTIDINE 20MG TABLET PO SCH ×2 (09:50→20:53)
[2022-10-18] MEDS: BUMETANIDE 1MG TABLET PO SCH ×2 (09:50→18:30)
[2022-10-18] MEDS: CARVEDILOL 6.25 MG TABLET PO SCH ×2 (09:51→20:52)
[2022-10-18] MEDS: LOSARTAN POTASSIUM 50 MG TABLET PO SCH (09:51)
[2022-10-18] MEDS ORDERED: NALOXONE HCL 0.4MG/ML VIAL IV PRN (16:45)
[2022-10-19] VITALS: BP 124/61
[2022-10-19] MEDS: HYDROCODONE/ACETAMINOPHEN 10/325MG TABLET PO PRN ×3 (00:57→14:30)
[2022-10-19 04:00] VITALS: BP 98/44
[2022-10-19 08:00] VITALS: BP 107/48
[2022-10-19] MEDS: FAMOTIDINE 20MG TABLET PO SCH ×2 (08:21→22:08)
[2022-10-19] MEDS: LOSARTAN POTASSIUM 50 MG TABLET PO SCH (08:21)
[2022-10-19] MEDS: COLCHICINE 0.6MG TABLET PO SCH ×3 (08:22→18:04)
[2022-10-19] MEDS: ATORVASTATIN CALCIUM 40MG TABLET PO SCH (08:23)
[2022-10-19] MEDS: BUMETANIDE 1MG TABLET PO SCH ×2 (08:23→18:04)
[2022-10-19] MEDS: SPIRONOLACTONE 25MG TABLET PO SCH (08:23)
[2022-10-19] MEDS: ASPIRIN 81MG EC TABLET PO SCH (08:23)
[2022-10-19] MEDS: CARVEDILOL 6.25 MG TABLET PO SCH ×2 (09:00→21:00)
[2022-10-19 12:00] VITALS: BP 109/52
[2022-10-19] MEDS ORDERED: P20 MT (15:40)
[2022-10-19 16:00] VITALS: BP 115/55
[2022-10-19] MEDS: PREDNISONE 20MG TABLET PO SCH ×2 (17:00→18:09)
[2022-10-19 20:00] VITALS: BP 93/48
[2022-10-20] VITALS: BP 104/58
[2022-10-20] MEDS: HYDROCODONE/ACETAMINOPHEN 10/325MG TABLET PO PRN ×3 (00:22→12:48)
[2022-10-20 04:01] VITALS: BP 101/61
[2022-10-20] MEDS: SPIRONOLACTONE 25MG TABLET PO SCH (08:51)
[2022-10-20] MEDS: CARVEDILOL 6.25 MG TABLET PO SCH (08:51)
[2022-10-20] MEDS: ATORVASTATIN CALCIUM 40MG TABLET PO SCH (09:15)
[2022-10-20] MEDS: COLCHICINE 0.6MG TABLET PO SCH (09:16)
[2022-10-20] MEDS: PREDNISONE 20MG TABLET PO SCH (09:16)
[2022-10-20] MEDS: ASPIRIN 81MG EC TABLET PO SCH (09:16)
[2022-10-20] MEDS: LOSARTAN POTASSIUM 50 MG TABLET PO SCH (09:16)
[2022-10-20] MEDS: BUMETANIDE 1MG TABLET PO SCH (09:16)
[2022-10-20] MEDS: FAMOTIDINE 20MG TABLET PO SCH (09:20)
[2022-10-20 12:00] VITALS: BP 108/58
[2022-10-20 12:11] VITALS: BP 104/53
[2022-10-20 12:48] VITALS: BP 104/53
== END 2022-10-20 15:30 | disposition home or self-care (01) | DRG 194 ==
LOC: ER 20:51 → ENRESERV 10-18 02:46 → 7EST 10-18 04:17 → 7WST 10-19 02:05
PROVIDERS: ADMIT Internal Medicine; ATTEND Internal Medicine
DX: I11.0 Hypertensive heart disease with heart failure (principal); N17.0 Acute kidney failure with tubular necrosis; E87.1 Hypo-osmolality and hyponatremia; I50.23 Acute on chronic systolic (congestive) heart failure; E78.5 Hyperlipidemia, unspecified; E66.01 Morbid (severe) obesity due to excess calories; I42.9 Cardiomyopathy, unspecified; M10.9 Gout, unspecified; Z79.899 Other long term (current) drug therapy; Z68.42 Body mass index [BMI] 45.0-49.9, adult; Z95.810 Presence of automatic (implantable) cardiac defibrillator
CPT/HCPCS: 36415; 71045; 80053; 83880; 84484; 85025; 93005; 93306; 99285; J7512

== ENCOUNTER 2022-12-08 07:35 | Emergency (ER) | payer MEDICAID, OTHER ==
[~2022-12-08] VITALS: Ht 190.5 cm; Wt 160.0 kg
[~2022-12-08 07:35] MED LIST changes: +BUME2TAB7 MT; +HYDR-4009 MT; +P20 MT; +VALS80TA30 PO
[2022-12-08] MEDS ORDERED: SODIUM CHLORIDE 0.9% 500 ML IV ONE (08:30)
[2022-12-08 08:40] LABS: BASOPHILS % 0.8 % (0.0-2.0); CHLORIDE 103 mEq/L (98-107); EOSINOPHILS % 3.7 % (0.0-5.0); HEMATOCRIT. 37.2 % (42.0-52.0); HEMOGLOBIN. 12.8 g/dL (14.0-18.0); MEAN CORPUSCULAR VOLUME 95.5 fL (80.0-94.0); MEAN PLATELET VOLUME 11.1 fl (7.4-10.4); MONOCYTES % 12.6 % (2.0-8.0); NEUTROPHILS % 45.9 % (40.0-76.0); PLATELET 105 x1000/uL (130-400); RED CELL DISTRIBUTION WIDTH 14.3 % (11.6-14.6)
[2022-12-08 15:00] VITALS: BP 122/72
== END 2022-12-08 18:46 | disposition short-term general hospital (02) ==
LOC: ER 07:35 → CANBEDREQ 12-10 07:53
DX: T82.118A Breakdown (mechanical) of other cardiac electronic device, initial encounter (principal); X58.XXXA Exposure to other specified factors, initial encounter; R42 Dizziness and giddiness; R07.89 Other chest pain; I11.0 Hypertensive heart disease with heart failure; I50.9 Heart failure, unspecified; E78.00 Pure hypercholesterolemia, unspecified; Z95.0 Presence of cardiac pacemaker; Z79.899 Other long term (current) drug therapy; Z20.822 Contact with and (suspected) exposure to COVID-19
CPT/HCPCS: 36415; 71045; 80053; 83880; 84484; 85025; 87426; 93005; 96360; 99285; C9803; J7040; Z7610

== ENCOUNTER 2022-12-24 00:33 | Emergency (ER) | payer OTHER ==
[~2022-12-24] VITALS: Ht 188 cm; Wt 140.0 kg
[2022-12-24] MEDS ORDERED: MORPHINE SULFATE 4 MG/ML CPJ (NOT FOR IM USE) IV ONE (04:30)
[2022-12-24 05:00] LABS: BASOPHILS % 0.7 % (0.0-2.0); EOSINOPHILS % 2.1 % (0.0-5.0); HEMATOCRIT. 34.7 % (42.0-52.0); HEMOGLOBIN. 11.9 g/dL (14.0-18.0); LYMPHOCYTES % 21.6 % (20.0-50.0); MEAN CORPUSCULAR HEMOGLOBIN 31.8 pg (28.0-32.0); MEAN CORPUSCULAR VOLUME 92.7 fL (80.0-94.0); MEAN PLATELET VOLUME 11.9 fl (7.4-10.4); MONOCYTES % 11.5 % (2.0-8.0); NEUTROPHILS % 64.1 % (40.0-76.0); PLATELET 101 x1000/uL (130-400); RED BLOOD CELL COUNT 3.74 mill/uL (4.7-6.1); RED CELL DISTRIBUTION WIDTH 14.1 % (11.6-14.6)
[2022-12-24 05:22] LABS: CHLORIDE 102 mEq/L (98-107)
[2022-12-24 05:37] LABS: D-DIMER 0.72 mg/L FEU (<0.50); INR 1.1; PARTIAL THROMBOPLASTIN TIME 26.9 sec (23.4-31.0); PROTHROMBIN TIME 11.6 sec (9.6-11.0)
[2022-12-24 07:52] VITALS: BP 101/56
== END 2022-12-24 08:05 | disposition short-term general hospital (02) ==
LOC: ER 00:35
DX: R07.89 Other chest pain (principal); I11.0 Hypertensive heart disease with heart failure; I50.9 Heart failure, unspecified; E78.00 Pure hypercholesterolemia, unspecified
CPT/HCPCS: 36415; 71045; 80053; 83880; 84484; 85025; 85379; 85610; 85730; 93005; 96374; 99285; J2270